=== PATIENT | female | born 1990 | race Caucasian/White ===

== ENCOUNTER 2022-11-30 11:34 | Emergency (ER) | payer OTHER, SELFPAY ==
--- NOTE | ~2022-11-30 | US_ITS ---
Examination: Ultrasound Pelvis and transvaginal. Chest x-ray with left RIBS. COMPARISON: CT abdomen and pelvis 05/29/2017. clinical indications: Pain and vaginal bleeding. TECHNIQUE: Chest and RIBS 4 views. Transabdominal and transvaginal imaging of pelvis was performed. FINDINGS: Chest: The lungs are well-expanded and clear of acute pneumonic process. The heart size and pulmonary vascularity is normal. Multiple views of left ribs with a marker in the lower chest reveals mild irregularity involving the left lateral 10th rib on one of the oblique views, suspicious for fracture. Rest the left ribs are unremarkable. Pelvis: The uterus is anteverted and anteflexed measuring 8.6 cm in length, 5.2 cm in AP and 6.6 cm in transverse dimension. The endometrial thickness is 1.3 cm. No focal lesion is seen. Small simple and complex nabothian cysts seen in the cervix The right ovary measures 3.0 x 1.7 x 2.5 cm and volume 6.6 mL. There are small follicular cysts seen. The right ovary measured 2.9 x 2.6 x 2.3). Left ovary measures 3.5 x 2.0 x 2.2 cm and volume 8.1 mL. There is no focal lesion seen. Previously left ovary measured 2.3 x 1.2 x 2.3 cm. There is moderate free fluid in bilateral adnexa. US/US pelvic and transvaginal IMPRESSION: 1. Unremarkable chest x-ray. Slight abnormality involving the left 10th rib. Question nondisplaced fracture.. 2. Unremarkable ovaries and uterus. 3. Small nabothian cysts in the cervix. 4. Moderate free fluid in bilateral adnexa.
[2022-11-30 11:48] VITALS: BP 111/53; PULSE 69; RESP 18; TEMP 37.1; O2SAT 98; BMI 25.4
--- NOTE | 2022-11-30 11:51 | ED.GENADULT ---
HPI - General Adult General Chief complaint: Vaginal Bleeding Stated complaint: weakness Time Seen by Provider: 11/30/22 12:05 Source: patient and RN notes reviewed Mode of arrival: ambulatory Limitations: no limitations History of Present Illness HPI narrative: This is a 32-year-old female, with no known past medical history,, presenting to the emergency department with complaints of vaginal bleeding. Patient states last menstrual period was on November 13 and has not had cessation of her menses. She admits passing large clots, saturating a pad in an hour, also endorsing weakness and dizziness. She states that she is not on control. She states that her menses are usually 5 days. She has never had prolonged menses like this before. She also states that she has had left sided rib pain, states that she fell out of bed several weeks ago. Denies chest pain, SOB, headaches, palpitations, nausea, vomiting, diarrhea or constipation. Denies dysuria, hematuria, urinary frequency or urgency. No other complaints or concerns at this time. MD complaint: Vaginal bleeding Radiation: non-radiation Relieving factors: none Exacerbating factors: none Associated symptoms: denies other symptoms Treatments prior to arrival: none Related Data Previous Rx's Medication Instructions Recorded ferrous sulfate 325 mg (65 mg 325 mg PO DAILY #30 tabs 11/30/22 iron) tablet medroxyprogesterone 10 mg tablet 10 mg PO DAILY #30 tabs 11/30/22 (Provera) Allergies Allergy/AdvReac Type Severity Reaction Status Date / Time No Known Allergies Allergy Unverified 12/29/19 17:41 Review of Systems Review of Systems: Yes all other systems are reviewed and are negative Constitutional: Constitutional: Reports as per [facility] Social History Social History Alcohol intake: never Physical Exam ED Vital Signs: Vital Signs - 24 hr 11/30/22 11:48 11/30/22 12:09 11/30/22 15:42 Temperature 98.8 F 97.9 F Pulse Rate 69 64 53 Respiratory Rate 18 16 16 Blood Pressure 111/53 L 100/60 108/59 L Pulse Oximetry 98 99 100 Oxygen Delivery Method Room Air Room Air Room Air BMI result Body Mass Index 23.9 Const General: cooperative, comfortable and no acute distress Orientation/consciousness: patient oriented x3 Limitations: no limitations HENMT Head: Yes normal to inspection, Yes normocephalic and Yes atraumatic Ears: hearing grossly normal bilaterally General nose exam: Normal external nose present Face and sinus: Yes normal facial exam Mouth: Normal oral and palatal mucosa present, oropharynx normal and moist mucous membranes Throat: Yes posterior oropharynx normal Eyes General: appearance normal, both eyes and all related structures Eyelids: Yes eyelids normal Conjunctivae: conjunctivae normal Sclerae: sclerae normal Pupils: Equal, round and reactive pupils present EOM: EOMs intact bilaterally Neck Neck: Yes normal visual inspection, Yes full ROM and Yes no lymphadenopathy Lymphatic: no lymphadenopathy noted Chest Other: Left sided chest wall tenderness to palpation. No step off or crepitus. Chest palpation & inspection: normal inspection of the chest Resp Effort & Inspection: normal respiratory effort and able to speak in complete sentences Auscultation: clear to auscultation bilaterally, no crackles, no rales, no rhonchi and no wheezes Cardio Rate: regular rate Rhythm: regular rhythm Heart sounds: S1 normal heart sound present and S2 normal heart sound present GI Other: Abdomen soft, nontender, nondistended. Inspection: Yes normal to inspection Other: Entirety of examination performed with ore dressing engineer, solar field service technician Mercedes present at all times. Speculum examination with blood with blood clots in the vaginal vault. No cerivcal motion tenderness. No adenexal tenderness. General: Yes Bimanual renal exam normal bilaterally and Yes bladder normal to palpation Speculum Exam - Vagina: normal appearance of the vagina, normal palpation and vaginal bleeding Speculum Exam - Cervix: normal appearance of the cervix and Cervical os closed Bimanual exam- vagina & uterus: normal bimanual exam, normal palpation, uterine size normal and bladder normal to palpation OB/external & speculum: vaginal bleeding Skin General skin exam: no rashes or lesions noted Trauma: no lacerations or abrasions Wounds: no wounds Neuro General: patient oriented x3 and moves all extremities Cranial nerves: Yes Equal, round and reactive pupils present Extrem General: Yes normal to inspection Right upper extremity: normal to inspection Left upper extremity: normal to inspection Right lower extremity: normal to inspection Left lower extremity: normal to inspection Course Course Course Narrative: RME: patient presents to the ED for weakness and vaginal bleeding for the past 3 weeks and has had vaginal blood clots the past 4 days and using multiple pads. patient also states abdominal cramping. patient states home pregnacy test is negative. patient denies any known past medical history of fibroids and ovarain cysts. labs ordered. patient brought to bed 6 Reevaluation(s) Reevaluation #1: The ultrasound showed moderate free fluid in the bilateral adnexa, unremarkable ovaries and uterus. I consult Dr. Sanchez, who recommends starting Provera 10 mg by mouth for 30 days until she is seen by her OBGYN. Recommend following up as outpatient 24 hours. Advised to return with any worsening symptoms or heavy bleeding. Also recommending ferrous sulfate 325 mg by mouth as well. Discussed plan with patient will understands and agrees with plan. Xrays reveal subtle abnormality overlying the 10th rib - question non - displaced fractured. Discussed findings with patient. Patient stable for discharge. Time: 15:35 Medical Decision Making Medical Decision Making [facility] Narrative: 32 y/o F presenting to the emergency department with complaints of abnormal uterine bleeding. On arrival, VSS. Patient has no TTP throughout entire abdomen. Speculum examination reveals a closed cervical OS, but bright red blood in vaginal vault. Labs were obtained, patient has stable H&H, all other labs WNL. Ultrasound was performed without any abnormalities. Differential Diagnosis Differential Diagnoses: The differential diagnosis associated with the presentation includes Abnormal uterine bleeding, ectopic , uterine fibroid, anemia Admission/Observation Consideration of admission/observation: Escalation of care including admission/observation considered Patient would have been admitted to the hospital had her work up had any findings where hospital admission was appropriate and her clinical presentation warranted hospital admission. Lab Data [facility] Lab Attestation statement: I reviewed the patient's lab results. 11/30/22 12:14 11/30/22 12:14 Labs: Lab Results 11/30/22 11/30/22 11/30/22 Range/Units 12:14 12:14 12:14 WBC 6.6 (4.8-10.8) X10*3/uL RBC 3.69 L (4.20-5.50) X10*6/uL Hgb 11.2 L (12.0-16.0) g/dl Hct 33.4 L (37.0-47.0) % MCV 90.5 (80.0-98.0) fL MCH 30.4 (27.0-33.0) pg MCHC 33.5 (31.0-35.0) g/dl RDW 13.4 (11.0-16.0) % Plt Count 171 (160-400) X10*3/uL MPV 9.7 (9.4-12.3) fL Immature Gran % (Auto) 0.5 H (0.0-0.4) % Neut % (Auto) 60.7 (45-73) % Lymph % (Auto) 29.7 (20-40) % Shackelford % (Auto) 6.5 (2-11) % Eos % (Auto) 1.8 (0-4) % Baso % (Auto) 0.8 (0-2) % Lymph # (Auto) 2.0 (1.2-4.9) X10*3/uL [place]ackelford # (Auto) 0.4 (0.1-1.2) X10*3/uL Eos # (Auto) 0.1 (0.0-0.4) X10*3/uL Baso # (Auto) 0.1 (0.0-0.2) X10*3/uL Abs Immat Gran (auto) 0.03 (0.00-0.03) X10*3/uL Absolute Neuts (auto) 4.0 (2.0-8.3) x10*3/uL Absolute Nucleated RBC 0.000 (0.0-0.012) X10*3/uL Nucleated RBC % (auto) 0.0 (0.0-0.2) /100WBC PT 12.1 (11.1-13.3) SEC INR 1.0 (0.9-1.1) APTT 27.3 (26.0-36.4) SEC Sodium 141 (135-145) mmol/L Potassium 3.6 (3.3-5.1) mmol/L Chloride 108 (96-108) mmol/L Carbon Dioxide 25 (22-29) mmol/L Anion Gap 12 (12-20) BUN 11 (9-16) mg/dL Creatinine 0.87 (0.5-1.4) mg/dL Estim Creat Clear Calc 78.6 Estimated GFR > 60 Random Glucose 150 H (60-115) mg/dL Calcium 9.1 (8.4-10.2) mg/dL Total Bilirubin 0.5 (0.0-1.0) mg/dL AST 18 (5-31) U/L ALT 16 (0-31) U/L Alkaline Phosphatase 50 (39-117) U/L Total Protein 7.0 (6.5-8.0) g/dL Albumin 4.1 (3.5-5.0) g/dL Beta HCG, Quant < 2 mIU/mL Urine Color Urine Appearance Urine pH (5.0-9.0) Ur Specific Malin (1.005-1.025) Urine Protein (Neg-Trace) mg/dL Urine Glucose (UA) (Negative) mg/dL Urine Ketones (Negative) mg/dL Urine Blood (Negative) Urine Nitrite (Negative) Ur Leukocyte Esterase (Negative) Urine RBC (0-2) /HPF Urine WBC (0-5) /HPF Ur Squamous Epith Cells (0-2) /HPF Urine Bacteria (None Seen) Hyaline Casts (0-2) /LPF Urine Test (NEGATIVE) Colette species DNA (Negative) Chlam trachomat DNA PCR (Not Detect.) Gardnerella DNA Probe (Negative) N.gonorrhoeae DNA (PCR) (Not Detect.) Trichomonas DNA Probe (Negative) 11/30/22 11/30/22 11/30/22 Range/Units 12:35 12:35 15:57 WBC (4.8-10.8) X10*3/uL RBC (4.20-5.50) X10*6/uL Hgb (12.0-16.0) g/dl Hct (37.0-47.0) % MCV (80.0-98.0) fL MCH (27.0-33.0) pg MCHC (31.0-35.0) g/dl RDW (11.0-16.0) % Plt Count (160-400) X10*3/uL MPV (9.4-12.3) fL Immature Gran % (Auto) (0.0-0.4) % Neut % (Auto) (45-73) % Lymph % (Auto) (20-40) % Shackelford % (Auto) (2-11) % Eos % (Auto) (0-4) % Baso % (Auto) (0-2) % Lymph # (Auto) (1.2-4.9) X10*3/uL [place] # (Auto) (0.1-1.2) X10*3/uL Eos # (Auto) (0.0-0.4) X10*3/uL Baso # (Auto) (0.0-0.2) X10*3/uL Abs Immat Gran (auto) (0.00-0.03) X10*3/uL Absolute Neuts (auto) (2.0-8.3) x10*3/uL Absolute Nucleated RBC (0.0-0.012) X10*3/uL Nucleated RBC % (auto) (0.0-0.2) /100WBC PT (11.1-13.3) SEC INR (0.9-1.1) APTT (26.0-36.4) SEC Sodium (135-145) mmol/L Potassium (3.3-5.1) mmol/L Chloride (96-108) mmol/L Carbon Dioxide (22-29) mmol/L Anion Gap (12-20) BUN (9-16) mg/dL Creatinine (0.5-1.4) mg/dL Estim Creat Clear Calc Estimated GFR Random Glucose (60-115) mg/dL Calcium (8.4-10.2) mg/dL Total Bilirubin (0.0-1.0) mg/dL AST (5-31) U/L ALT (0-31) U/L Alkaline Phosphatase (39-117) U/L Total Protein (6.5-8.0) g/dL Albumin (3.5-5.0) g/dL Beta HCG, Quant mIU/mL Urine Color Dark Yellow Urine Appearance Hazy Urine pH 6.0 (5.0-9.0) Ur Specific Malin 1.025 (1.005-1.025) Urine Protein 30 (1+) H (Neg-Trace) mg/dL Urine Glucose (UA) Negative (Negative) mg/dL Urine Ketones Trace (Negative) mg/dL Urine Blood Large (3+) H (Negative) Urine Nitrite Negative (Negative) Ur Leukocyte Esterase Moderate (2+) H (Negative) Urine RBC >20 H (0-2) /HPF Urine WBC >50 H (0-5) /HPF Ur Squamous Epith Cells 11-20 (0-2) /HPF Urine Bacteria 1+ (None Seen) Hyaline Casts 0-2 (0-2) /LPF Urine Test NEGATIVE (NEGATIVE) Colette species DNA (Negative) Chlam trachomat DNA PCR NOT DETECTED (Not Detect.) Gardnerella DNA Probe (Negative) N.gonorrhoeae DNA (PCR) NOT DETECTED (Not Detect.) Trichomonas DNA Probe (Negative) 11/30/22 Range/Units 15:57 WBC (4.8-10.8) X10*3/uL RBC (4.20-5.50) X10*6/uL Hgb (12.0-16.0) g/dl Hct (37.0-47.0) % MCV (80.0-98.0) fL MCH (27.0-33.0) pg MCHC (31.0-35.0) g/dl RDW (11.0-16.0) % Plt Count (160-400) X10*3/uL MPV (9.4-12.3) fL Immature Gran % (Auto) (0.0-0.4) % Neut % (Auto) (45-73) % Lymph % (Auto) (20-40) % Shackelford % (Auto) (2-11) % Eos % (Auto) (0-4) % Baso % (Auto) (0-2) % Lymph # (Auto) (1.2-4.9) X10*3/uL [place] # (Auto) (0.1-1.2) X10*3/uL Eos # (Auto) (0.0-0.4) X10*3/uL Baso # (Auto) (0.0-0.2) X10*3/uL Abs Immat Gran (auto) (0.00-0.03) X10*3/uL Absolute Neuts (auto) (2.0-8.3) x10*3/uL Absolute Nucleated RBC (0.0-0.012) X10*3/uL Nucleated RBC % (auto) (0.0-0.2) /100WBC PT (11.1-13.3) SEC INR (0.9-1.1) APTT (26.0-36.4) SEC Sodium (135-145) mmol/L Potassium (3.3-5.1) mmol/L Chloride (96-108) mmol/L Carbon Dioxide (22-29) mmol/L Anion Gap (12-20) BUN (9-16) mg/dL Creatinine (0.5-1.4) mg/dL Estim Creat Clear Calc Estimated GFR Random Glucose (60-115) mg/dL Calcium (8.4-10.2) mg/dL Total Bilirubin (0.0-1.0) mg/dL AST (5-31) U/L ALT (0-31) U/L Alkaline Phosphatase (39-117) U/L Total Protein (6.5-8.0) g/dL Albumin (3.5-5.0) g/dL Beta HCG, Quant mIU/mL Urine Color Urine Appearance Urine pH (5.0-9.0) Ur Specific Malin (1.005-1.025) Urine Protein (Neg-Trace) mg/dL Urine Glucose (UA) (Negative) mg/dL Urine Ketones (Negative) mg/dL Urine Blood (Negative) Urine Nitrite (Negative) Ur Leukocyte Esterase (Negative) Urine RBC (0-2) /HPF Urine WBC (0-5) /HPF Ur Squamous Epith Cells (0-2) /HPF Urine Bacteria (None Seen) Hyaline Casts (0-2) /LPF Urine Test (NEGATIVE) Colette species DNA Negative (Negative) Chlam trachomat DNA PCR (Not Detect.) Gardnerella DNA Probe Positive A (Negative) N.gonorrhoeae DNA (PCR) (Not Detect.) Trichomonas DNA Probe Negative (Negative) Radiology Impression Discussion of test interpretation with radiology: I have reviewed the radiologist's reading. External Record Review External record reviewed: Inpatient record, Office record, Outpatient record, Prior outpatient labs, Prior outpatient radiology, Primary care record and Outside ED record Discharge Plan Discharge Clinical Impression: Vaginal bleeding, Fracture of rib Patient Disposition: Home, Self-Care Instructions: Dysfunctional Uterine Bleeding (ED), Rib Fracture (ED) Additional Instructions: Please take prescribed medication as directed. Please follow-up outpatient in 24 hours. Call your OBGYN to be seen. I am also leaving [facility], you can call them to make an appointment as well. But it is very important that you follow-up within next 24 hours. Please return if heavy bleeding continues or you develop any worsening symptoms. Please take iron supplements every day. You do have a rib fracture, please ensure that your taking deep breath to prevent pneumonia. Prescriptions: New medroxyprogesterone [Provera] 10 mg tablet 10 mg PO DAILY Qty: 30 0RF ferrous sulfate 325 mg (65 mg iron) tablet 325 mg PO DAILY Qty: 30 0RF Referrals: [facility] [place] [facility] [Provider Group] Interventions: ED Discharge Assessment Last Done: 11/30/22 15:46 Discharge Date/Time: 11/30/22 15:47
[2022-11-30 12:09] VITALS: BP 100/60; PULSE 64; RESP 16; TEMP 36.6; O2SAT 99; BMI 23.9
[2022-11-30 12:21] LABS: MANUAL DIFF FLAG NO
[2022-11-30 12:23] LABS: Basophils Absolute Auto 0.1 X10*3/uL (0.0-0.2); Basophils Percent Auto 0.8 % (0-2); Eosinophils Absolute Auto 0.1 X10*3/uL (0.0-0.4); Eosinophils Percent Auto 1.8 % (0-4); Hematocrit 33.4 % (37.0-47.0); Hemoglobin 11.2 g/dl (12.0-16.0); Imm Gran Abs Auto 0.03 X10*3/uL (0.00-0.03); Imm Gran Pct Auto 0.5 % (0.0-0.4); Lymphocytes Percent Auto 29.7 % (20-40); Mean Corpuscular HGB Conc 33.5 g/dl (31.0-35.0); Mean Corpuscular Hemoglobin 30.4 pg (27.0-33.0); Mean Corpuscular Volume 90.5 fL (80.0-98.0); Mean Platelet Volume 9.7 fL (9.4-12.3); Monocytes Absolute Auto 0.4 X10*3/uL (0.1-1.2); Monocytes Percent Auto 6.5 % (2-11); Neutrophils Percent Auto 60.7 % (45-73); Platelet Count 171 X10*3/uL (160-400); Red Blood Count 3.69 X10*6/uL (4.20-5.50); Red Cell Distribution Width 13.4 % (11.0-16.0); White Blood Count 6.6 X10*3/uL (4.8-10.8)
[2022-11-30 12:33] LABS: Prothrombin Time 12.1 SEC (11.1-13.3)
[2022-11-30 12:36] LABS: Partial Thromboplastin Time 27.3 SEC (26.0-36.4)
[2022-11-30 12:42] LABS: Alanine Aminotransferase 16 U/L (0-31); Albumin Level 4.1 g/dL (3.5-5.0); Alkaline Phosphatase 50 U/L (39-117); Anion Gap 12 (12-20); Aspartate Amino Transferase 18 U/L (5-31); Bilirubin Total 0.5 mg/dL (0.0-1.0); Blood Urea Nitrogen 11 mg/dL (9-16); Calcium 9.1 mg/dL (8.4-10.2); Carbon Dioxide 25 mmol/L (22-29); Chloride 108 mmol/L (96-108); Creatinine Clr Calc Pharmacy 78.6; Estimated Glomerular Filt Rate > 60; Glucose Random 150 mg/dL (60-115); Potassium 3.6 mmol/L (3.3-5.1); Sodium 141 mmol/L (135-145)
[2022-11-30 12:43] LABS: HCG Quantitative < 2 mIU/mL
[2022-11-30 12:52] LABS: Appearance Urine Hazy; Color Urine Dark Yellow; Glucose Urine UA Negative (Negative); Specific Gravity - Urine 1.025 (1.005-1.025); Urine Blood Large (3+) (Negative); Urine Ketones Trace mg/dL (Negative); Urine Protein 30 (1+) mg/dL (Neg-Trace)
[2022-11-30 12:53] LABS: Leukocyte Esterase Urine Moderate (2+) (Negative); Nitrite Urine Negative (Negative); UMIC TRIGGER UACC YES; UPreg QC Valid YES; Urine Pregnancy NEGATIVE (NEGATIVE)
[2022-11-30 12:54] LABS: Bacteria Urine 1+ (None Seen); Hyaline Casts Urine 0-2 /LPF (0-2); RBC Urine >20 /HPF (0-2); UACC Culture Trigger YES; WBC Urine >50 /HPF (0-5)
--- NOTE | 2022-11-30 15:24 | PM.GYNCN ---
PARKING SUPERVISOR - CN: HPI Data of Consult Consult date: 11/30/22 Primary Care Provider: Vikash Montes III, MD Consult Narrative Narrative: I was consulted on Katharine Almendarez who is a 32 year old female presented to the emergency room with vaginal bleeding associated with passage of blood clots and pelvic cramping since November 13. No other associated symptoms. cc:: CC: OB [facility] Social History Social History Alcohol intake: never Smoked in Last 30 Days: Yes Use of substances other than those prescribed or required for medical reasons: No Advance Directives: No Advance Directives Information Provided: No Patient : No Meds Allergies Allergy/AdvReac Type Severity Reaction Status Date / Time No Known Allergies Allergy Unverified 12/29/19 17:41 PARKING SUPERVISOR Physical Exam Vitals Vital signs: Temp Pulse Resp BP Pulse Ox O2 Del Method 97.9 F 64 16 100/60 99 Room Air 11/30/22 12:09 11/30/22 12:09 11/30/22 12:09 11/30/22 12:09 11/30/22 12:09 11/30/22 12:09 BMI result Body Mass Index 23.9 Additional Comments: Reported by TITA Durán the emergency room as the following: Abdomen nontender soft. Pelvic exam blood per vagina, no evidence of active vaginal bleeding, no cervical motion tenderness. PARKING SUPERVISOR - Results Labs 11/30/22 12:14 11/30/22 12:14 Labs: Short CBC 11/30/22 Range/Units 12:14 WBC 6.6 (4.8-10.8) X10*3/uL Hgb 11.2 L (12.0-16.0) g/dl Hct 33.4 L (37.0-47.0) % Plt Count 171 (160-400) X10*3/uL BMP 11/30/22 12:14 Sodium 141 Potassium 3.6 Chloride 108 Carbon Dioxide 25 BUN 11 Creatinine 0.87 Calcium 9.1 Liver Function 11/30/22 Range/Units 12:14 Total Bilirubin 0.5 (0.0-1.0) mg/dL AST 18 (5-31) U/L ALT 16 (0-31) U/L Alkaline Phosphatase 50 (39-117) U/L Albumin 4.1 (3.5-5.0) g/dL Urine 11/30/22 11/30/22 Range/Units 12:35 12:35 Urine Color Dark Yellow Urine Appearance Hazy Urine pH 6.0 (5.0-9.0) Ur Specific [place] 1.025 (1.005-1.025) Urine Protein 30 (1+) H (Neg-Trace) mg/dL Urine Glucose (UA) Negative (Negative) mg/dL Urine Test NEGATIVE (NEGATIVE) Imaging US - abdomen: Radiologist's impression: ITS Impressions Pelvic/Transvag US 11/30/22 14:00 IMPRESSION: 1. Unremarkable chest x-ray. Slight abnormality involving the left 10th rib. Question nondisplaced fracture.. 2. Unremarkable ovaries and uterus. 3. Small nabothian cysts in the cervix. 4. Moderate free fluid in bilateral adnexa. Ribs X-Ray 11/30/22 14:19 IMPRESSION: 1. Unremarkable chest x-ray. Slight abnormality involving the left 10th rib. Question nondisplaced fracture.. 2. Unremarkable ovaries and uterus. 3. Small nabothian cysts in the cervix. 4. Moderate free fluid in bilateral adnexa. Assessment and Plan (1) Abnormal uterine bleeding: Status: Acute Recommended to TITA Durán the following: Provera 10 mg p.o. q.d. till she sees her OBGYN at [place]. Follow-up with her OBGYN within 24 hours for further evaluation or or or. Instructions to be given to the patient to come back to the emergency room in case of persistence or heavy vaginal bleeding, pelvic pain or fever, iron sulfate 325 mg p.o. q.d. Time Spent With Patient Time: Total time managing care of this patient today ____ minutes.
[2022-11-30 15:42] VITALS: BP 108/59; PULSE 53; RESP 16; O2SAT 100
[2022-12-01 05:40] LABS: CT PCR NOT DETECTED (Not Detect.); NG PCR NOT DETECTED (Not Detect.)
[2022-12-01 09:15] LABS: BV Int Neg Control Negative (Negative); BV Int Pos Control Positive (Positive)
== END 2022-11-30 15:47 | disposition home or self-care (01) ==
PROVIDERS: Physician Assistant; Physician Assistant Medical; Emergency Provider Emergency Medicine; PCP Internal Medicine
DX: S22.32XA Fracture of one rib, left side, initial encounter for closed fracture (principal); N93.9 Abnormal uterine and vaginal bleeding, unspecified; R53.1 Weakness; R07.81 Pleurodynia; R10.2 Pelvic and perineal pain; X58.XXXA Exposure to other specified factors, initial encounter; Y93.9 Activity, unspecified; Y92.9 Unspecified place or not applicable; Y99.9 Unspecified external cause status; Z79.899 Other long term (current) drug therapy
CPT/HCPCS: 0353U; 36415; 71101; 76830; 76856; 80053; 81001; 81025; 84702; 85025; 85610; 85730; 87086; 87480; 87510; 87660; 99284

== ENCOUNTER → 2022-11-30 12:08 | Outpatient (BNV) | payer OTHER, SELFPAY | PROVIDERS: Emergency Provider Emergency Medicine; PCP Internal Medicine; Visit Provider Obstetrics & Gynecology | DX: N93.9 Abnormal uterine and vaginal bleeding, unspecified (principal) | CPT/HCPCS: 99283 ==

== ENCOUNTER 2023-01-30 13:16 | Emergency (ER) | payer OTHER, SELFPAY ==
[2023-01-30 13:27] VITALS: BP 138/82; PULSE 88; O2SAT 99; BMI 24.8
[2023-01-30 13:44] VITALS: BP 117/68; PULSE 72; RESP 16; TEMP 36.9; O2SAT 100
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
[2023-01-30] MEDS: Ketorolac Tromethamine 15 MG/ML VIAL IM (15:49)
== END 2023-01-30 16:12 | disposition left against medical advice (07) ==
PROVIDERS: Emergency Provider Emergency Medicine
DX: S13.4XXA Sprain of ligaments of cervical spine, initial encounter (principal); S49.92XA Unspecified injury of left shoulder and upper arm, initial encounter; R51.9 Headache, unspecified; M54.2 Cervicalgia; V43.52XA Car driver injured in collision with other type car in traffic accident, initial encounter; Y93.9 Activity, unspecified; Y92.410 Unspecified street and highway as the place of occurrence of the external cause; Y99.9 Unspecified external cause status; Z79.899 Other long term (current) drug therapy
CPT/HCPCS: 96372; 99283; 99284; J1885

== ENCOUNTER 2023-02-25 13:33 | Emergency (ER) | payer OTHER, SELFPAY ==
[2023-02-25 13:50] VITALS: BP 107/58; PULSE 69; RESP 16; TEMP 37.1; O2SAT 99; BMI 25.5
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
[2023-02-25 14:11] LABS: MANUAL DIFF FLAG NO
[2023-02-25 14:21] LABS: Basophils Absolute Auto 0.1 X10*3/uL (0.0-0.2); Basophils Percent Auto 0.9 % (0-2); Eosinophils Absolute Auto 0.2 X10*3/uL (0.0-0.4); Eosinophils Percent Auto 2.7 % (0-4); Hematocrit 33.1 % (37.0-47.0); Hemoglobin 10.4 g/dl (12.0-16.0); Imm Gran Abs Auto 0.02 X10*3/uL (0.00-0.03); Imm Gran Pct Auto 0.3 % (0.0-0.4); Mean Corpuscular HGB Conc 31.4 g/dl (31.0-35.0); Mean Corpuscular Hemoglobin 27.7 pg (27.0-33.0); Mean Corpuscular Volume 88.3 fL (80.0-98.0); Monocytes Absolute Auto 0.5 X10*3/uL (0.1-1.2); Monocytes Percent Auto 6.8 % (2-11); Neutrophils Absolute Auto 3.9 x10*3/uL (2.0-8.3); Neutrophils Percent Auto 59.3 % (45-73); Platelet Count 210 X10*3/uL (160-400); Red Blood Count 3.75 X10*6/uL (4.20-5.50); Red Cell Distribution Width 14.1 % (11.0-16.0); White Blood Count 6.6 X10*3/uL (4.8-10.8)
[2023-02-25 14:22] LABS: Prothrombin Time 11.9 SEC (11.1-13.3)
[2023-02-25 14:31] LABS: Alanine Aminotransferase 12 U/L (0-31); Albumin Level 3.8 g/dL (3.5-5.0); Alkaline Phosphatase 64 U/L (39-117); Anion Gap 6 (12-20); Aspartate Amino Transferase 17 U/L (5-31); Bilirubin Direct < 0.2 mg/dL (0.0-0.5); Bilirubin Total 0.1 mg/dL (0.0-1.0); Blood Urea Nitrogen 13 mg/dL (9-16); Calcium 8.5 mg/dL (8.4-10.2); Carbon Dioxide 29 mmol/L (22-29); Chloride 114 mmol/L (96-108); Estimated Glomerular Filt Rate > 60; Glucose Random 102 mg/dL (60-115); Lipase 23 U/L (8-78); Sodium 145 mmol/L (135-145); Total Protein 6.7 g/dL (6.5-8.0)
== END 2023-02-25 15:16 | disposition left against medical advice (07) ==
PROVIDERS: Physician Assistant; Emergency Provider Emergency Medicine
DX: S06.9XAA Unspecified intracranial injury with loss of consciousness status unknown, initial encounter (principal); R51.9 Headache, unspecified; R10.32 Left lower quadrant pain; V43.52XA Car driver injured in collision with other type car in traffic accident, initial encounter; Y93.9 Activity, unspecified; Y92.410 Unspecified street and highway as the place of occurrence of the external cause; Y99.9 Unspecified external cause status; Z79.899 Other long term (current) drug therapy
CPT/HCPCS: 36415; 80048; 80076; 83690; 85025; 85610; 99282; 99283

== ENCOUNTER 2023-03-04 09:37 | Emergency (ER) | payer OTHER, SELFPAY ==
[2023-03-04 09:46] VITALS: BP 132/83; PULSE 86; RESP 18; TEMP 36.6; O2SAT 99; BMI 25.5
== END 2023-03-04 12:28 | disposition left against medical advice (07) ==
PROVIDERS: Emergency Provider Emergency Medicine
DX: R42 Dizziness and giddiness (principal)
CPT/HCPCS: 99281

== ENCOUNTER 2023-03-06 11:47 | Emergency (ER) | payer OTHER, SELFPAY ==
--- NOTE | ~2023-03-06 | XR_ITS ---
EXAMINATION: XR RIBS, LEFT CLINICAL INFORMATION: Fall with rib tenderness COMPARISON: 11/30/2022 TECHNIQUE: 3 views of the left ribs were obtained. AP chest. FINDINGS: Lungs are clear. No consolidation, pneumothorax, or pleural effusion. The cardiomediastinal silhouette and pulmonary vasculature are normal. Healing lateral left 7th rib fracture with callus formation. This is not apparent on previous radiographs. No acute fracture is evident. XR/XR ribs LT min 3V w CXR1V IMPRESSION: Healing nondisplaced lateral left 7th rib fracture with callus formation. No acute fracture is evident.
--- NOTE | ~2023-03-06 | XR_ITS ---
EXAMINATION: XR HAND, LEFT CLINICAL INFORMATION: Pain and swelling COMPARISON: None available. TECHNIQUE: PA, lateral, and oblique views of the left hand. FINDINGS: The bones and soft tissues are normal. No fracture. Alignment is anatomic. Joint spaces are maintained. No erosions or soft tissue calcifications. XR/XR hand LT min 3V IMPRESSION: Normal left hand.
--- NOTE | 2023-03-06 12:10 | ED.GENADULT ---
HPI - General Adult General Chief complaint: General Medical Stated complaint: dizziness Related Data Previous Rx's Medication Instructions Recorded ferrous sulfate 325 mg (65 mg 325 mg PO DAILY #30 tabs 11/30/22 iron) tablet medroxyprogesterone 10 mg tablet 10 mg PO DAILY #30 tabs 11/30/22 (Provera) ketorolac 10 mg tablet 10 mg PO TID PRN pain 5 days #15 01/30/23 tabs Allergies Allergy/AdvReac Type Severity Reaction Status Date / Time No Known Allergies Allergy Verified 03/04/23 09:46 [facility] Social History Alcohol intake: never Physical Exam ED Vital Signs: Vital Signs - 24 hr 03/06/23 12:11 Temperature 98 F Pulse Rate 80 Respiratory Rate 18 Blood Pressure 127/64 Pulse Oximetry 98 Oxygen Delivery Method Room Air BMI result Body Mass Index 26.5 Course Course Course Narrative: This is a rapid medical exam: Additional HPI, ROS, PE not included below will be deferred to primary provider. Patient is a 32-year-old right-hand dominant female presenting to the emergency department with complaint of dizziness this morning which caused her to fall. She complains of left rib and left index finger pain related to fall. Denies hitting head, denies loss of consciousness. Denies prior dizzy episodes before today. Also states she has bumps all over her head as well as genital pain, swelling, and itching. Also reports white vaginal discharge. Plan: x-rays, UA, upreg Discharge Plan Discharge Clinical Impression: Dizziness Patient Disposition: Left W/O Completing Treatment Prescriptions: No Action ketorolac 10 mg tablet 10 mg PO TID PRN (Reason: pain) 5 Days Qty: 15 0RF medroxyprogesterone [Provera] 10 mg tablet 10 mg PO DAILY Qty: 30 0RF ferrous sulfate 325 mg (65 mg iron) tablet 325 mg PO DAILY Qty: 30 0RF
[2023-03-06 12:11] VITALS: BP 127/64; PULSE 80; RESP 18; TEMP 36.6; O2SAT 98; BMI 26.5
== END 2023-03-06 14:20 | disposition left against medical advice (07) ==
PROVIDERS: Emergency Provider Emergency Medicine
DX: S69.92XA Unspecified injury of left wrist, hand and finger(s), initial encounter (principal); R42 Dizziness and giddiness; R07.81 Pleurodynia; M79.642 Pain in left hand; W01.0XXA Fall on same level from slipping, tripping and stumbling without subsequent striking against object, initial encounter; Y93.9 Activity, unspecified; Y92.9 Unspecified place or not applicable; Y99.9 Unspecified external cause status
CPT/HCPCS: 71101; 73130; 99281; 99283

== ENCOUNTER 2023-05-25 08:56 | Emergency (ER) | payer OTHER, SELFPAY ==
[2023-05-25 09:08] VITALS: BP 131/101; PULSE 78; RESP 18; TEMP 36.4; O2SAT 99; BMI 26.7
--- NOTE | 2023-05-25 10:38 | ED.FEMALEGU ---
HPI - Female Genitourinary General Chief complaint: Urogenital-Female Stated complaint: cramping? Time Seen by Provider: 05/25/23 10:07 Source: patient and RN notes reviewed Mode of arrival: ambulatory Limitations: no limitations History of Present Illness HPI Narrative: This is a 32-year-old female, with history of abnormal uterine bleeding, presenting to the emergency department for evaluation abnormal vaginal discharge and vaginal bumps for the last month. She also reports itching as well bumps in her genitalia. She is sexually active with 1 partner. No new partners. She denies any fevers, chills, body aches, abdominal pain, nausea, vomiting or diarrhea. States that her last menstrual cycle was about 1 month ago. She denies any burning with urination, urinary frequency, urgency, dysuria or hematuria. Denies history genital warts for known history of STIs. No other complaints or concerns at this time. MD elicited complaint: vaginal discharge Onset (ago): month(s) Location of symptoms: external genitalia Severity: moderate Quality of pain: cramping Vaginal discharge: white and thick/cheesy Vaginal bleeding: none Related Data Previous Rx's Medication Instructions Recorded ferrous sulfate 325 mg (65 mg 325 mg PO DAILY #30 tabs 11/30/22 iron) tablet medroxyprogesterone 10 mg tablet 10 mg PO DAILY #30 tabs 11/30/22 (Provera) ketorolac 10 mg tablet 10 mg PO TID PRN pain 5 days #15 01/30/23 tabs doxycycline hyclate 100 mg tablet 100 mg PO BID 14 days #28 tabs 05/25/23 lidocaine HCl 2 % mucosal solution 1 appl mucous membrane TID PRN 05/25/23 (Lidocaine Viscous) pain #100 mL metronidazole 500 mg tablet 500 mg PO Q12H 14 days #28 tabs 05/25/23 Allergies Allergy/AdvReac Type Severity Reaction Status Date / Time No Known Allergies Allergy Verified 05/25/23 09:11 Review of Systems Review of Systems: Yes all other systems are reviewed and are negative Constitutional: Constitutional: Reports as per [facility] Social History Social History Alcohol intake: never Advance Directives: No Physical Exam Vital Signs: Vital Signs: Last Vital Signs Temp 97.6 F 05/25/23 09:08 Pulse 78 05/25/23 09:08 Resp 18 05/25/23 09:08 BP 131/101 H 05/25/23 09:08 Pulse Ox 99 05/25/23 09:08 O2 Del Method Room Air 05/25/23 09:08 BMI result Body Mass Index 26.7 Const: General: cooperative, comfortable and no acute distress Orientation/consciousness: patient oriented x3 Limitations: no limitations HEENT: Head: Yes normal to inspection, Yes normocephalic and Yes atraumatic Ears: hearing grossly normal bilaterally General nose exam: Normal external nose present Face and sinus: Yes normal facial exam Mouth: Normal oral and palatal mucosa present, oropharynx normal and moist mucous membranes Throat: Yes posterior oropharynx normal Eyes: General: appearance normal, both eyes and all related structures Eyelids: Yes eyelids normal Conjunctivae: conjunctivae normal Sclerae: sclerae normal Pupils: Equal, round and reactive pupils present EOM: EOMs intact bilaterally Neck: Neck: Yes normal visual inspection, Yes full ROM and Yes no lymphadenopathy Lymphatic: no lymphadenopathy noted Chest: Chest palpation & inspection: normal inspection of the chest Resp: Effort & Inspection: normal respiratory effort and able to speak in complete sentences Auscultation: clear to auscultation bilaterally, no crackles, no rales, no rhonchi and no wheezes Cardio: Rate: regular rate Rhythm: regular rhythm Heart sounds: S1 normal heart sound present and S2 normal heart sound present GI: Other: Abdomen is soft, nontender, nondistended Inspection: Yes normal to inspection : Other: External genitalia with scattered, greater than 10 multiple size, greatest measuring approximately 2 cm, stuck on appearance flesh-colored, tender lesions noted to the labia majora. No fluctuance or erythema. Vaginal vault thick white curd like vaginal discharge, bimanual examination with cervical motion tenderness noted. Cervical os is closed. Skin: General skin exam: no rashes or lesions noted Trauma: no lacerations or abrasions Wounds: no wounds Neuro: General: patient oriented x3 and moves all extremities Cranial nerves: Yes Equal, round and reactive pupils present Extrem: General: Yes normal to inspection Right upper extremity: normal to inspection Left upper extremity: normal to inspection Right lower extremity: normal to inspection Left lower extremity: normal to inspection Course Reevaluation(s) Reevaluation #1: Multiple attempts were made to call patient in regards to positive syphilis screening. I wanted to touch base with patient to see if she has a history of syphilis however given that she was unable to answer the phone, I left a message to return call to discuss laboratories. This still needs to be sent out for confirmation testing. Time: 19:06 Medications Administered Discontinued Medications Generic Name Dose Route Start Last Admin Trade Name Andrew PRN Reason Stop Dose Admin Ceftriaxone Sodium 500 mg/ 0 mg 05/25/23 11:14 05/25/23 11:26 Lidocaine HCl 1 ml IM 05/25/23 11:15 500 kit ONCE ONE Administration Medical Decision Making Medical Decision Making [facility] Narrative: This is a 32-year-old female presenting to the emergency department for evaluation of abnormal vaginal discharge for the last month. Also reporting some swelling and itchiness to the genitalia region. On arrival, patient nontoxic appearing, vital signs within normal limits. Examination concerning for genital warts as well as pelvic inflammatory disease as patient has white thick discharge with cervical motion tenderness. Will test for HIV and syphilis. Basic labs were collected. Patient treated with doxycycline, ceftriaxone and Flagyl. I discussed that we will call her with any positive results from her testing performed today. She understands and agrees with plan. I also educated the importance of following with OBGYN has genital warts often times needs to have surgical intervention or topical treatment which is often times prescribed by an OBGYN. She understands and agrees with plan. Given return precautions. Patient stable for discharge Differential Diagnosis Differential Diagnoses: The differential diagnosis associated with the presentation includes Bacterial vaginosis, vulva candidiasis, STI Admission/Observation Consideration of admission/observation: Escalation of care including admission/observation considered Lab Data [facility] Lab Attestation statement: I reviewed the patient's lab results. No leukocytosis, stable H&H, chemistry within normal limits. Patient with leuk esterases and wbc's, does not appear to be infected, will wait for urine culture. Chlamydia and gonorrhea returns, not detected, HIV nonreactive. She did test positive for RPR screening, see course comment as I tried to call patient in regards to this test however not answering phone and she already left prior to this result. Gardnerella, candidiasis and Trichomonas still pending. 05/25/23 11:27 05/25/23 11:27 Labs: Lab Results 05/25/23 05/25/23 05/25/23 Range/Units 10:49 11:19 11:27 WBC 8.8 (4.8-10.8) X10*3/uL RBC 4.48 (4.20-5.50) X10*6/uL Hgb 12.7 D (12.0-16.0) g/dl Hct 38.5 (37.0-47.0) % MCV 85.9 (80.0-98.0) fL MCH 28.3 (27.0-33.0) pg MCHC 33.0 (31.0-35.0) g/dl RDW 13.8 (11.0-16.0) % Plt Count 233 (160-400) X10*3/uL MPV 10.4 (9.4-12.3) fL Immature Gran % (Auto) 0.7 H (0.0-0.4) % Neut % (Auto) 61.6 (45-73) % Lymph % (Auto) 28.1 (20-40) % [place]linger % (Auto) 6.4 (2-11) % Eos % (Auto) 2.6 (0-4) % Baso % (Auto) 0.6 (0-2) % Lymph # (Auto) 2.5 (1.2-4.9) X10*3/uL Bollinger # (Auto) 0.6 (0.1-1.2) X10*3/uL Eos # (Auto) 0.2 (0.0-0.4) X10*3/uL Baso # (Auto) 0.1 (0.0-0.2) X10*3/uL Abs Immat Gran (auto) 0.06 H (0.00-0.03) X10*3/uL Absolute Neuts (auto) 5.4 (2.0-8.3) x10*3/uL Absolute Nucleated RBC 0.000 (0.0-0.012) X10*3/uL Nucleated RBC % (auto) 0.0 (0.0-0.2) /100WBC Sodium 139 (135-145) mmol/L Potassium 4.1 (3.3-5.1) mmol/L Chloride 103 (96-108) mmol/L Carbon Dioxide 27 (22-29) mmol/L Anion Gap 13 (12-20) BUN 16 (9-16) mg/dL Creatinine 0.80 (0.5-1.4) mg/dL Estim Creat Clear Calc 95.5 Estimated GFR > 60 Random Glucose 86 (60-115) mg/dL Calcium 9.5 D (8.4-10.2) mg/dL Total Bilirubin 0.4 (0.0-1.0) mg/dL Direct Bilirubin 0.2 (0.0-0.5) mg/dL AST 18 (5-31) U/L ALT 14 (0-31) U/L Alkaline Phosphatase 68 (39-117) U/L Total Protein 8.3 H (6.5-8.0) g/dL Albumin 4.6 (3.5-5.0) g/dL Urine Color Yellow Urine Appearance Clear Urine pH 7.0 (5.0-9.0) Ur Specific [place] 1.025 (1.005-1.025) Urine Protein Negative (Neg-Trace) mg/dL Urine Glucose (UA) Negative (Negative) mg/dL Urine Ketones Negative (Negative) mg/dL Urine Blood Negative (Negative) Urine Nitrite Negative (Negative) Ur Leukocyte Esterase Moderate (2+) H (Negative) Urine RBC 0-2 (0-2) /HPF Urine WBC 21-50 H (0-5) /HPF Ur Squamous Epith Cells 0-2 (0-2) /HPF Urine Bacteria None Seen (None Seen) Hyaline Casts 0-2 (0-2) /LPF Urine Test NEGATIVE (NEGATIVE) T.pallidum Ab (EIA) Reactive A (Nonreactive) Chlam trachomat DNA PCR NOT DETECTED (Not Detect.) HIV 1&2 Ab/P24 Ag 4thGn Nonreactive (Nonreactive) N.gonorrhoeae DNA (PCR) NOT DETECTED (Not Detect.) Prescription Management I considered prescription management with: Antiviral and Antibiotic Discharge Plan Discharge Clinical Impression: Acute pelvic inflammatory disease (PID), Genital warts Patient Disposition: Home, Self-Care Instructions: Sexually Transmitted Diseases (ED), Genital Warts (ED) Additional Instructions: Your physical exam today was concerning for genital warts. We are also testing for gonorrhea, chlamydia, bacterial vaginosis, Trichomonas, and yeast, HIV and syphilis. We will call you if these are positive. I also sent over to other antibiotics, please take full course even if you are feeling better. I am also prescribing you topical lidocaine that you can apply to help with pain. You may also take ibuprofen and Tylenol as needed for pain. You need to follow-up with OBGYN, call today to make an appointment. If any new or worsening symptoms occur including but not limited to fevers, chills, worsening pain, difficulty urinating, pelvic pressure or worsening pain, please return for re-evaluation. [facility] [phone] Prescriptions: New doxycycline hyclate 100 mg tablet 100 mg PO BID 14 Days Qty: 28 0RF metronidazole 500 mg tablet 500 mg PO Q12H 14 Days Qty: 28 0RF lidocaine HCl [Lidocaine Viscous] 2 % solution 1 appl mucous membrane TID PRN (Reason: pain) Qty: 100 0RF No Action ketorolac 10 mg tablet 10 mg PO TID PRN (Reason: pain) 5 Days Qty: 15 0RF medroxyprogesterone [Provera] 10 mg tablet 10 mg PO DAILY Qty: 30 0RF ferrous sulfate 325 mg (65 mg iron) tablet 325 mg PO DAILY Qty: 30 0RF Referrals: Lowell Sanchez MD [Physician] - Interventions: ED Discharge Assessment Last Done: 05/25/23 12:17 Discharge Date/Time: 05/25/23 12:17
[2023-05-25 10:57] LABS: Appearance Urine Clear; Color Urine Yellow; Glucose Urine UA Negative (Negative); Leukocyte Esterase Urine Moderate (2+) (Negative); Nitrite Urine Negative (Negative); Specific Gravity - Urine 1.025 (1.005-1.025); UMIC TRIGGER UACC YES; UPreg QC Valid YES; Urine Blood Negative (Negative); Urine Ketones Negative (Negative); Urine Pregnancy NEGATIVE (NEGATIVE); Urine Protein Negative (Neg-Trace)
[2023-05-25 11:10] LABS: Bacteria Urine None Seen (None Seen); Hyaline Casts Urine 0-2 /LPF (0-2); RBC Urine 0-2 /HPF (0-2); Squamous Epithelial Cell Urine 0-2 /HPF (0-2); UACC Culture Trigger YES; WBC Urine 21-50 /HPF (0-5)
[2023-05-25] MEDS: cefTRIAXone sodium 500 MG, Lidocaine HCl 1 % MPF 1 ML IM (11:26)
[2023-05-25 11:54] LABS: MANUAL DIFF FLAG NO
[2023-05-25 11:56] LABS: Basophils Absolute Auto 0.1 X10*3/uL (0.0-0.2); Basophils Percent Auto 0.6 % (0-2); Eosinophils Absolute Auto 0.2 X10*3/uL (0.0-0.4); Eosinophils Percent Auto 2.6 % (0-4); Hematocrit 38.5 % (37.0-47.0); Hemoglobin 12.7 g/dl (12.0-16.0); Imm Gran Abs Auto 0.06 X10*3/uL (0.00-0.03); Imm Gran Pct Auto 0.7 % (0.0-0.4); Lymphocytes Absolute Auto 2.5 X10*3/uL (1.2-4.9); Lymphocytes Percent Auto 28.1 % (20-40); Mean Corpuscular Hemoglobin 28.3 pg (27.0-33.0); Mean Corpuscular Volume 85.9 fL (80.0-98.0); Mean Platelet Volume 10.4 fL (9.4-12.3); Monocytes Absolute Auto 0.6 X10*3/uL (0.1-1.2); Monocytes Percent Auto 6.4 % (2-11); Neutrophils Absolute Auto 5.4 x10*3/uL (2.0-8.3); Neutrophils Percent Auto 61.6 % (45-73); Platelet Count 233 X10*3/uL (160-400); Red Blood Count 4.48 X10*6/uL (4.20-5.50); Red Cell Distribution Width 13.8 % (11.0-16.0); White Blood Count 8.8 X10*3/uL (4.8-10.8)
[2023-05-25 12:21] LABS: Alanine Aminotransferase 14 U/L (0-31); Albumin Level 4.6 g/dL (3.5-5.0); Alkaline Phosphatase 68 U/L (39-117); Anion Gap 13 (12-20); Aspartate Amino Transferase 18 U/L (5-31); Bilirubin Direct 0.2 mg/dL (0.0-0.5); Bilirubin Total 0.4 mg/dL (0.0-1.0); Blood Urea Nitrogen 16 mg/dL (9-16); Calcium 9.5 mg/dL (8.4-10.2); Carbon Dioxide 27 mmol/L (22-29); Chloride 103 mmol/L (96-108); Creatinine Clr Calc Pharmacy 95.5; Estimated Glomerular Filt Rate > 60; Glucose Random 86 mg/dL (60-115); Potassium 4.1 mmol/L (3.3-5.1); Sodium 139 mmol/L (135-145); Total Protein 8.3 g/dL (6.5-8.0)
[2023-05-25 12:36] LABS: HIV AB/AG Nonreactive (Nonreactive); HIV Num 1 0.05 S/CO (0.00-0.99)
[2023-05-25 12:44] LABS: Syphilis Screen Reactive (Nonreactive)
[2023-05-25 13:26] LABS: CT PCR NOT DETECTED (Not Detect.); NG PCR NOT DETECTED (Not Detect.)
[2023-05-26 10:54] LABS: BV Int Neg Control Negative (Negative); BV Int Pos Control Positive (Positive)
[2023-05-31 11:12] LABS: RPR Quantitative Reactive 1:32 (Nonreactive)
[2023-05-31 11:13] LABS: T.Pallidum Particle Agg Test Reactive (Nonreactive)
== END 2023-05-25 12:17 | disposition home or self-care (01) ==
PROVIDERS: Physician Assistant Medical; Emergency Provider Emergency Medicine
DX: A00-B99 Certain infectious and parasitic diseases (principal); A63.0 Anogenital (venereal) warts; N89.8 Other specified noninflammatory disorders of vagina; L29.2 Pruritus vulvae
CPT/HCPCS: 0353U; 36415; 80048; 80076; 81001; 81025; 85025; 86592; 86780; 87086; 87389; 87480; 87510; 87660; 96372; 99282; 99284; J0696

== ENCOUNTER 2023-06-03 13:09 | Emergency (ER) | payer OTHER, SELFPAY ==
[2023-06-03 13:14] VITALS: BP 106/57; PULSE 73; RESP 17; TEMP 37; O2SAT 100; BMI 26.4
--- NOTE | 2023-06-03 13:14 | ED.FEMALEGU ---
HPI - Female Genitourinary General Chief complaint: Urogenital-Female Stated complaint: called to return for pos test result Time Seen by Provider: 06/03/23 13:14 Source: patient, RN notes reviewed and old records reviewed Mode of arrival: ambulatory History of Present Illness HPI Narrative: 32-year-old female past medical history of abnormal uterine bleeding, syphilis positive, presenting to ED for syphilis treatment. Patient was seen and treated in our ED on 03/24/2024, tested for STIs at that time, called and informed she was syphilis positive & to return for proper treatment. Denies any symptoms at present. States is sexually active with 1 partner. Denies lesions, vaginal bleeding/discharge, abdominal pain, nausea/vomiting. Related Data Previous Rx's Medication Instructions Recorded ferrous sulfate 325 mg (65 mg 325 mg PO DAILY #30 tabs 11/30/22 iron) tablet medroxyprogesterone 10 mg tablet 10 mg PO DAILY #30 tabs 11/30/22 (Provera) ketorolac 10 mg tablet 10 mg PO TID PRN pain 5 days #15 01/30/23 tabs doxycycline hyclate 100 mg tablet 100 mg PO BID 14 days #28 tabs 05/25/23 lidocaine HCl 2 % mucosal solution 1 appl mucous membrane TID PRN 05/25/23 (Lidocaine Viscous) pain #100 mL metronidazole 500 mg tablet 500 mg PO Q12H 14 days #28 tabs 05/25/23 Allergies Allergy/AdvReac Type Severity Reaction Status Date / Time No Known Allergies Allergy Verified 05/25/23 09:11 Review of Systems Review of Systems: Constitutional: No Fever, No Chills ENT/Mouth: No Ear Pain, No Nasal Congestion, No sore throat, No Rhinorrhea, No Swallowing Difficulty Cardiovascular: No Chest Pain, No SOB Respiratory: No Cough Gastrointestinal: No Nausea, No Vomiting, No Abdominal pain Genitourinary: No vaginal discharge, no vaginal lesions, No Dysuria, No Urinary Frequency, No Hematuria, No Flank Pain Musculoskeletal: No joint pain, No Myalgias Skin: No Skin Lesions, No rash Neuro: No Weakness Yes all other systems are reviewed and are negative Constitutional: Constitutional: Reports as per [facility] Past Medical History Attestation statement: The following information was validated with the patient. Source: old records reviewed Social History Social History Alcohol intake: never Physical Exam Vital Signs: Vital Signs: Last Vital Signs Temp 98.6 F 06/03/23 13:14 Pulse 73 06/03/23 13:14 Resp 17 06/03/23 13:14 BP 106/57 L 06/03/23 13:14 Pulse Ox 100 06/03/23 13:14 O2 Del Method Room Air 06/03/23 13:14 BMI result Body Mass Index 26.4 Const: General: cooperative, healthy appearing and no acute distress Orientation/consciousness: patient oriented x3 Limitations: no limitations HEENT: Head: Yes normal to inspection and Yes atraumatic Ears: hearing grossly normal bilaterally General nose exam: Normal external nose present Face and sinus: Yes normal facial exam Eyes: General: appearance normal, both eyes and all related structures EOM: EOMs intact bilaterally Neck: Neck: Yes normal visual inspection and Yes no meningeal signs Resp: Effort & Inspection: normal respiratory effort and no respiratory distress Cardio: Rate: regular rate Skin: Rashes: no rashes Wounds: no wounds Neuro: General: patient oriented x3, tone normal and no meningeal signs Cranial nerves: Yes CN's II-XII intact bilaterally Gait exam (Neuro): Normal gait present Extrem: General: Yes normal to inspection Medical Decision Making Medical Decision Making MDM Narrative: 32-year-old female past medical history of abnormal uterine bleeding, syphilis positive, presenting to ED for syphilis treatment. On exam vital signs stable, NAD, nontoxic appearing, asymptomatic at present. Will treat with penicillin G. Recommended close PCP/infectious disease or tapestry follow-up for further treatment/monitoring. Discussed importance of informing partners and refraining from sexual contact Please refer to course for remaining clinical decision making, interpretation of labs/imaging results, and discussions with consultants and/or family members. Results discussed with patient including worrisome signs and symptoms and strict return precautions, and when to return to the emergency department. They verbalized understanding and feel safe for discharge at this time. Differential Diagnosis Differential Diagnoses: The differential diagnosis associated with the presentation includes As above Admission/Observation Consideration of admission/observation: Escalation of care including admission/observation considered Lab Data [facility] Lab Attestation statement: I reviewed the patient's lab results. External Record Review External record reviewed: Outpatient record Tests considered The following testing was considered but not selected: As above Prescription Management I considered prescription management with: Pain Medication Social Determinants Patient?s care significantly limited by Social Determinants of Health including: Low income, Alcoholism and drug addiction in family and Problems related to primary support group Discharge Plan Discharge Clinical Impression: Syphilis Patient Disposition: Home, Self-Care Instructions: Syphilis (ED) Additional Instructions: You have syphilis, you were treated with her 1st injection today in the emergency department Please have close follow-up with her doctor as well as Infectious Disease Please inform her partners they can be tested and treated as well Refrain from any sexual contact for the next 3 weeks Prescriptions: No Action ketorolac 10 mg tablet 10 mg PO TID PRN (Reason: pain) 5 Days Qty: 15 0RF doxycycline hyclate 100 mg tablet 100 mg PO BID 14 Days Qty: 28 0RF metronidazole 500 mg tablet 500 mg PO Q12H 14 Days Qty: 28 0RF lidocaine HCl [Lidocaine Viscous] 2 % solution 1 appl mucous membrane TID PRN (Reason: pain) Qty: 100 0RF medroxyprogesterone [Provera] 10 mg tablet 10 mg PO DAILY Qty: 30 0RF ferrous sulfate 325 mg (65 mg iron) tablet 325 mg PO DAILY Qty: 30 0RF [place] [facility] [place] [facility]] [facility] [Provider Group] Vikash Montes III, MD [Primary Care Provider] -
[2023-06-03] MEDS: Penicillin G Benzathine 2,400,000 UNIT/4 ML SYRINGE 2400000 UNIT IM (13:23)
== END 2023-06-03 13:29 | disposition home or self-care (01) ==
PROVIDERS: Emergency Provider Emergency Medicine Emergency Medical Services; PCP Internal Medicine
DX: A53.9 Syphilis, unspecified (principal)
CPT/HCPCS: 96372; 99282; 99284; J0561

== ENCOUNTER 2024-04-21 11:32 | Outpatient (AMB) | payer OTHER, SELFPAY ==
[2024-04-21 11:14] VITALS: BP 140/70; PULSE 110; RESP 22; O2SAT 98
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
== END 2024-04-21 12:54 | disposition home or self-care (01) ==
PROVIDERS: PCP Internal Medicine
DX: Z00.00 Encounter for general adult medical examination without abnormal findings (principal); Z51.81 Encounter for therapeutic drug level monitoring

== ENCOUNTER → 2024-04-21 11:32 | Outpatient (BNVA) | payer OTHER, SELFPAY | PROVIDERS: PCP Internal Medicine | DX: F11.20 Opioid dependence, uncomplicated (principal); F14.10 Cocaine abuse, uncomplicated | CPT/HCPCS: 80307; 81025; 99202 ==

== ENCOUNTER → 2024-04-22 09:55 | Outpatient (BNVA) | payer OTHER, SELFPAY | PROVIDERS: PCP Internal Medicine; Visit Provider Nurse Practitioner Psychiatric/Mental Health ==

== ENCOUNTER 2024-04-29 09:43 | Outpatient (REF) | payer OTHER, SELFPAY | END 2024-04-29 09:44 | disposition home or self-care (01) | LOC: HO.LAB 09:43 | PROVIDERS: PCP Internal Medicine; Visit Provider Nurse Practitioner Psychiatric/Mental Health | DX: F11.20 Opioid dependence, uncomplicated (principal) | CPT/HCPCS: 99212 ==

== ENCOUNTER 2024-04-29 09:43 | Outpatient (AMB) | payer OTHER, SELFPAY ==
--- NOTE | 2024-04-29 09:51 | MHC.AM.SUB ---
Vital Signs 04/29/24 09:53 BP 100/60 Blood Pressure Location Rt brachial Position Sitting Respiration 22 H Pulse 65 Pulse Source Pulse Oximeter Pulse Oximetry (%) 98 Oxygen Delivery Method Room Air Intake Visit Reasons: Follow Up Allergies No Known Allergies Allergy (Verified 05/25/23 09:11) HPI HPI Follow Up: Details: Patient presents for follow up Started suboxone last week Taking 8mg BID Finds that is helping with cravings Reporting anxiety is not helped with clonidine/fells like it makes it worse --advised she can stop taking it Denies any nausea, is reporting constipation In terms of cocaine--has decreased smoking Review of Systems Const Reports as per HPI and Reports no additional complaints Physical Exam Vital Signs: Last Vital Signs Pulse 65 04/29/24 09:53 Resp 22 H 04/29/24 09:53 BP 100/60 04/29/24 09:53 Pulse Ox 98 04/29/24 09:53 Oxygen Delivery Method Room Air 04/29/24 09:53 Const General: cooperative, healthy appearing, alert and well groomed Nutritional Appearance: thin Orientation/consciousness: patient oriented x3 Limitations: no limitations Neuro General: patient oriented x3 Psych Appearance: well kempt Speech and movement: Normal speech and movement present Affect: normal affect Attitude: cooperative Thought process: Normal thought process present Thought content: Normal thought content present Insight: Good insight present (Psych) Judgement: Good judgement present (Psych) [facility] Social History Alcohol intake: never Assessment & Plan Assessment & Plan (1) Opioid use disorder, severe, dependence: Code(s): F11.20 - Opioid dependence, uncomplicated Category: Medical Plan: continue suboxone 8mg BID labs ordered will trial mirtazipine for sleep docusate PRN constipation follow up one week (2) Cocaine use disorder: Code(s): F14.10 - Cocaine abuse, uncomplicated Category: Medical Plan: risk reduction discussion Orders: Orders Complete Blood Count Auto Diff Today - Opioid dependence, uncomplicated Comprehensive Met. Panel Today - Opioid dependence, uncomplicated HIV Ab/Ag Today - Opioid dependence, uncomplicated Hepatitis C Antibody Reflex Today - Opioid dependence, uncomplicated Hepatitis B Profile Today - Opioid dependence, uncomplicated Hepatitis A IgG Today F11.20 - Opioid dependence, uncomplicated Hepatitis A IgM Today F11.20 - Opioid dependence, uncomplicated Medications: New mirtazapine 7.5 mg PO BEDTIME 7 tabs 0RF docusate sodium 100 mg PO DAILY PRN 30 caps 0RF constipation Refilled buprenorphine-naloxone 8-2 mg (Suboxone) 1 film buccal BID 14 ea 0RF Discontinued clonidine HCl Discontinued Reason: Patient no longer taking 0.1 mg PO TID PRN 21 tabs 0RF withdrawal symptoms
[2024-04-29 09:53] VITALS: BP 100/60; PULSE 65; RESP 22; O2SAT 98
== END 2024-04-29 10:16 | disposition home or self-care (01) ==
PROVIDERS: PCP Internal Medicine; Visit Provider Nurse Practitioner Psychiatric/Mental Health
DX: F11.20 Opioid dependence, uncomplicated (principal); F14.10 Cocaine abuse, uncomplicated
CPT/HCPCS: 99214

== ENCOUNTER → 2024-05-18 14:05 | Outpatient (BNVA) | payer OTHER, SELFPAY | PROVIDERS: PCP Internal Medicine; Visit Provider Nurse Practitioner Psychiatric/Mental Health | DX: F11.20 Opioid dependence, uncomplicated (principal) | CPT/HCPCS: 99212 ==

== ENCOUNTER 2024-05-18 14:25 | Inpatient (IN) | payer OTHER, SELFPAY ==
[2024-05-18 14:36] VITALS: BP 131/74; PULSE 83; RESP 16; TEMP 36.1; O2SAT 99; BMI 25.7
--- NOTE | 2024-05-18 14:45 | ECG_ITS ---
Test Reason : medical clearance Blood Pressure : */* mmHG Vent. Rate : 59 BPM Atrial Rate : 59 BPM P-R Int : 138 ms QRS Dur : 94 ms QT Int : 412 ms P-R-T Axes : 57 32 26 degrees QTcB Int : 407 ms Sinus bradycardia Minimal voltage criteria for LVH, may be normal variant ( Sokolow-Morgan ) Abnormal ECG No previous ECGs available Referred By: Generic ED Physician Electronically Signed By: Darren Tapia
[2024-05-18 15:19] LABS: MANUAL DIFF FLAG NO
[2024-05-18 15:23] LABS: Basophils Absolute Auto 0.1 X10*3/uL (0.0-0.2); Eosinophils Absolute Auto 0.1 X10*3/uL (0.0-0.4); Eosinophils Percent Auto 1.6 % (0-4); Hematocrit 36.9 % (37.0-47.0); Hemoglobin 12.2 g/dl (12.0-16.0); Imm Gran Abs Auto 0.03 X10*3/uL (0.00-0.03); Imm Gran Pct Auto 0.6 % (0.0-0.4); Lymphocytes Absolute Auto 1.4 X10*3/uL (1.2-4.9); Mean Corpuscular HGB Conc 33.1 g/dl (31.0-35.0); Mean Corpuscular Hemoglobin 29.1 pg (27.0-33.0); Mean Corpuscular Volume 88.1 fL (80.0-98.0); Mean Platelet Volume 10.3 fL (9.4-12.3); Monocytes Absolute Auto 0.3 X10*3/uL (0.1-1.2); Neutrophils Absolute Auto 3.2 x10*3/uL (2.0-8.3); Neutrophils Percent Auto 63.8 % (45-73); Platelet Count 223 X10*3/uL (160-400); Red Blood Count 4.19 X10*6/uL (4.20-5.50); Red Cell Distribution Width 12.7 % (11.0-16.0)
[2024-05-18 15:23] LABS: UPreg QC Valid YES; Urine Pregnancy NEGATIVE (NEGATIVE)
--- NOTE | 2024-05-18 15:23 | ED_ITS ---
HPI - Psych General Chief Complaint: Psychiatric Symptoms Stated Complaint: SI statements Time Seen by Provider: 05/18/24 15:21 Source: patient and old records reviewed Limitations: no limitations History of Present Illness ED Provider: CARMELO BARON Narrative: 33 yo female with PMH of opiate and cocaine abuse follows with Noemy Noland on suboxone here with c/o lots of crying past two days, thinking about her dad who . Vague SI no plan. No medical concerns. Wants to do better for her son feels she is letting him down all the time MD complaint: feels depressed Onset (ago): day(s) (2) Duration: constant History of same: Yes Relieving factors: none Exacerbating factors: other Context: significant life stressor Associated psychiatric symptoms: depression Associated symptoms: denies other symptoms Treatments prior to arrival: none If self harm: admits thoughts of self harm Related Data Home Medications ?Medication ?Instructions ?Recorded ?Confirmed clonidine HCl 0.1 mg tablet 0.1 mg PO TID PRN withdrawal 05/18/24 05/18/24 symptom Previous Rx's ?Medication ?Instructions ?Recorded docusate sodium 100 mg capsule 100 mg PO DAILY PRN constipation 04/29/24 #30 caps mirtazapine 7.5 mg tablet 7.5 mg PO BEDTIME #7 tabs 04/29/24 buprenorphine 8 mg-naloxone 2 mg 1 film buccal BID #14 ea 05/11/24 sublingual film (Suboxone) Allergies Allergy/AdvReac Type Severity Reaction Status Date / Time No Known Allergies Allergy Verified 05/18/24 14:37 Review of Systems 2 Review of Systems: Constitutional : No Fever, No Chills ENT/Mouth : No Ear Pain, No Nasal Congestion, No sore throat Eyes: No Eye Pain, No Swelling, No Redness Cardiovascular : No Chest Pain, No SOB Respiratory : No Cough, No Sputum, No Dyspnea Gastrointestinal : No Nausea, No Vomiting, No Diarrhea, No Hematochezia, No Melena Genitourinary : No Dysuria, No Urinary Frequency, No Hematuria Musculoskeletal : No Myalgias Skin : No Skin Lesions, No rash Neuro : No Weakness, No Numbness, No Paresthesias, No Dizziness, No Headache Psych : positive Anxiety, positive Depression, positive SI no HI All other systems reviewed and are negative PMFSH Past Medical History Attestation statement: The following information was validated with the patient. Source: old records reviewed Medical History (Updated 05/18/24 @ 16:47 by Jaqueline Guerra DO) Opioid use disorder, severe, dependence Cocaine use disorder Social History Social History (Updated 05/18/24 @ 15:24 by Jaqueline Guerra DO) Alcohol intake: never Patient Tobacco Use Status: Tobacco use Unknown Advance Directives: No Advance Directives Information Provided: Yes Do you have a plan to hurt others: No Plan Physical Exam 2 Vital Signs: Vital Signs: Last Vital Signs Temp 97 F 05/18/24 14:36 Pulse 83 05/18/24 14:36 Resp 16 05/18/24 16:00 BP 131/74 05/18/24 14:36 Pulse Ox 99 05/18/24 14:36 O2 Del Method Room Air 05/18/24 14:36 BMI result Body Mass Index 25.7 Appearance: Alert. Oriented X3. No acute distress. Eyes: Pupils equal, round and reactive to light. ENT: Pharynx normal. Neck: Normal inspection. Neck supple. CVS: Normal heart rate and rhythm. Pulses normal. Respiratory: No respiratory distress. Breath sounds normal. Abdomen: Soft and nontender. Skin: Skin warm and dry. Normal skin color. Normal skin turgor. Extremities: No lower extremity edema. No calf ttp Neuro: Oriented X 3. No motor deficit. No sensory deficit. CN2-12 intact Medications Administered Discontinued Medications Generic Name Dose Route Start Last Admin Trade Name Freq PRN Reason Stop Dose Admin Lorazepam 2 mg 05/18/24 16:43 05/18/24 16:58 Lorazepam 1 Mg Tablet PO 05/18/24 16:44 2 mg ONCE ONE Administration Medical Decision Making Medical Decision Making [facility] Narrative: 33 yo female with PMH of opiate and cocaine abuse follows with Noemy Noland on suboxone here with c/o depression and vague SI. She has no medical complaints at this time will obtain labs and CARE team consult. PO medications from home ordered. Differential Diagnosis Differential Diagnoses: The differential diagnosis associated with the presentation includes depression, psychosis, substance abuse Admission/Observation Consideration of admission/observation: Escalation of care including admission/observation considered physician observation started at 345pm pending CARE team Consult Healthcare Provider Management of the patient was discussed with: Behavioral Health Provider Lab Data [facility] Lab Attestation statement: I reviewed the patient's lab results. 05/18/24 15:12 05/18/24 15:12 Labs: Lab Results 05/18/24 05/18/24 Range/Units 15:12 15:13 WBC 5.0 (4.8-10.8) X10*3/uL RBC 4.19 L (4.20-5.50) X10*6/uL Hgb 12.2 (12.0-16.0) g/dl Hct 36.9 L (37.0-47.0) % MCV 88.1 (80.0-98.0) fL MCH 29.1 (27.0-33.0) pg MCHC 33.1 (31.0-35.0) g/dl RDW 12.7 (11.0-16.0) % Plt Count 223 (160-400) X10*3/uL MPV 10.3 (9.4-12.3) fL Immature Gran % (Auto) 0.6 H (0.0-0.4) % Neut % (Auto) 63.8 (45-73) % Lymph % (Auto) 27.0 (20-40) % [place] % (Auto) 6.0 (2-11) % Eos % (Auto) 1.6 (0-4) % Baso % (Auto) 1.0 (0-2) % Lymph # (Auto) 1.4 (1.2-4.9) X10*3/uL [place] # (Auto) 0.3 (0.1-1.2) X10*3/uL Eos # (Auto) 0.1 (0.0-0.4) X10*3/uL Baso # (Auto) 0.1 (0.0-0.2) X10*3/uL Abs Immat Gran (auto) 0.03 (0.00-0.03) X10*3/uL Absolute Neuts (auto) 3.2 (2.0-8.3) x10*3/uL Absolute Nucleated RBC 0.000 (0.0-0.012) X10*3/uL Nucleated RBC % (auto) 0.0 (0.0-0.2) /100WBC Sodium 139 (135-145) mmol/L Potassium 3.9 (3.3-5.1) mmol/L Chloride 108 (96-108) mmol/L Carbon Dioxide 25 (22-29) mmol/L Anion Gap 10 L (12-20) BUN 12 (9-16) mg/dL Creatinine 0.63 (0.5-1.4) mg/dL Estim Creat Clear Calc 118.1 Estimated GFR > 60 Random Glucose 113 (60-115) mg/dL Calcium 9.1 (8.4-10.2) mg/dL Total Bilirubin 0.2 (0.0-1.0) mg/dL AST 26 (5-31) U/L ALT 31 (0-31) U/L Alkaline Phosphatase 47 (39-117) U/L Total Protein 7.6 (6.5-8.0) g/dL Albumin 4.1 (3.5-5.0) g/dL Urine Test NEGATIVE (NEGATIVE) Urine Opiates Screen Not Detected (Not Detect) Ur Buprenorphine Scrn Not Detected (Not Detect) ng/mL Ur Oxycodone Screen Not Detected (Not Detect) ng/mL Urine Methadone Screen Not Detected (Not Detect) ng/mL Urine Fentanyl Screen POSITIVE H (Not Detect) Ur Barbiturates Screen Not Detected (Not Detect) Ur Phencyclidine Scrn Not Detected (Not Detect) Ur Amphetamines Screen Not Detected (Not Detect) U Benzodiazepines Scrn POSITIVE H (Not Detect) Urine Cocaine Screen POSITIVE H (Not Detect) U Marijuana (THC) Screen Not Detected (Not Detect) Influenza Type A (PCR) NEGATIVE (Negative) Influenza Type B (PCR) NEGATIVE (Negative) RSV RNA Qual (PCR) NEGATIVE (Negative) SARS-CoV-2 RNA (RT-PCR) NEGATIVE (Negative) Independent Interpretation I performed an independent interpretation of an: EKG Interpretation: Rate: 59 Rhythm: sinus bradycardia [place]: normal, LVH Normal P waves. Normal [place]. Normal QRS complex. ST T wave : normal no JOSE qTC: 407 prior studies: no acute ischemia The study has been interpreted contemporaneously by me. . External Record Review External record reviewed: Outpatient record Social Determinants Patient?s care significantly limited by Social Determinants of Health including: Problems related to primary support group Discharge Plan Discharge Clinical Impression: Opioid use disorder, severe, dependence Depression Qualifiers: Depression Type: unspecified Qualified Code(s): F32.A - Depression, unspecified Patient Disposition: Still a Patient Prescriptions: No Action buprenorphine-naloxone [Suboxone] 8-2 mg film 1 film buccal BID Qty: 14 0RF clonidine HCl 0.1 mg tablet 0.1 mg PO TID PRN (Reason: withdrawal symptom) mirtazapine 7.5 mg tablet 7.5 mg PO BEDTIME Qty: 7 0RF docusate sodium 100 mg capsule 100 mg PO DAILY PRN (Reason: constipation) Qty: 30 0RF Interventions: [place]-Suicide Risk Severity Scale Last Done: 05/18/24 14:47 Print Language: Arabic
[2024-05-18 15:34] LABS: Amphetamine Screen Urine Not Detected (Not Detect); Barbiturates, Urine Not Detected (Not Detect); Benzodiazepines Screen Urine POSITIVE (Not Detect); Buprenorphine Scr Not Detected (Not Detect); Cannabinoid Screen Urine Not Detected (Not Detect); Cocaine Screen Urine POSITIVE (Not Detect); Fentanyl, urine POSITIVE (Not Detect); Methadone Screen, Urine Not Detected (Not Detect); Opiate Screen Urine Not Detected (Not Detect); Oxycodone Screen Urine Not Detected (Not Detect); Phencyclidine Screen Urine Not Detected (Not Detect)
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
[2024-05-18 15:41] LABS: Alanine Aminotransferase 31 U/L (0-31); Albumin Level 4.1 g/dL (3.5-5.0); Anion Gap 10 (12-20); Aspartate Amino Transferase 26 U/L (5-31); Bilirubin Total 0.2 mg/dL (0.0-1.0); Blood Urea Nitrogen 12 mg/dL (9-16); Calcium 9.1 mg/dL (8.4-10.2); Carbon Dioxide 25 mmol/L (22-29); Chloride 108 mmol/L (96-108); Creatinine Clr Calc Pharmacy 118.1; Estimated Glomerular Filt Rate > 60; Glucose Random 113 mg/dL (60-115); Potassium 3.9 mmol/L (3.3-5.1); Sodium 139 mmol/L (135-145); Total Protein 7.6 g/dL (6.5-8.0)
[2024-05-18 15:59] LABS: Influenza A PCR NEGATIVE (Negative); Influenza B PCR NEGATIVE (Negative); Resp Syncy Virus RNA Qual PCR NEGATIVE (Negative); SARS COV2 PCR INHOUSE NEGATIVE (Negative)
[2024-05-18 16:00] VITALS: RESP 16
[2024-05-18 16:36] LABS: Alkaline Phosphatase 47 U/L (39-117)
[2024-05-18] MEDS: LORazepam 1 MG TABLET 2 MG PO (16:58)
[2024-05-18 20:44] VITALS: BP 131/72; PULSE 85; RESP 18; TEMP 36.8; O2SAT 100
[2024-05-18] MEDS: Mirtazapine 7.5 MG TABLET PO (21:01)
[2024-05-18] MEDS: Buprenorphine/Naloxone 8/2 mg FILM 1 FILM BUCCAL (21:01)
[2024-05-18 23:46] VITALS: BMI 25.9
[2024-05-18 23:47] VITALS: BP 129/79; PULSE 63; RESP 18; TEMP 36.7; O2SAT 98
[2024-05-19] MEDS: hydrOXYzine HCL 25 MG TABLET PO (00:32)
[2024-05-19] MEDS: Nicotine Polacrilex 2 MG GUM 4 MG BUCCAL ×2 (00:32→10:05)
[2024-05-19] MEDS: Docusate Sodium 100 MG CAPSULE PO (00:32)
[2024-05-19] MEDS: traZODone HCL 50 MG TABLET PO ×2 (00:32→01:50)
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
[2024-05-19 04:55] VITALS: BP 112/64
[2024-05-19] MEDS: cloNIDine HCL 0.1 MG TABLET PO ×3 (04:55→21:03)
[2024-05-19 07:00] VITALS: BMI 26.7
[2024-05-19 08:00] VITALS: BP 102/71; PULSE 58; RESP 14; TEMP 36.6; O2SAT 98
[2024-05-19] MEDS: Buprenorphine/Naloxone 8/2 mg FILM 1 FILM BUCCAL ×3 (08:46→20:57)
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
[2024-05-19 09:49] LABS: Cholesterol 138 mg/dL (<200); HDL Cholesterol 40 mg/dL (>40); LDL Cholesterol Calculated 76 mg/dL (<100); Triglycerides 113 mg/dL (<150)
[2024-05-19 10:04] LABS: Free T4 (Free Thyroxine) 0.97 ng/dL (0.71-1.85); Thyroid Stimulating Hormone 4.92 uIU/mL (0.32-4.0)
[2024-05-19 10:15] LABS: Folate 9.4 ng/mL (> or = 4.0); Vitamin B12 326 pg/mL (200-900)
[2024-05-19 11:19] LABS: Estimated Average Glucose 111 mg/dL; Hemoglobin A1C 107.1131 umol/L; Hemoglobin A1c % 5.5 % (<6.0); Total Hemoglobin (HGBA1C) 2888.0528 umol/L
[2024-05-19] MEDS: clonazePAM 1 MG TABLET PO ×2 (14:06→20:57)
[2024-05-19] MEDS: Nicotine Polacrilex Lozenge 4 MG LOZENGE BUCCAL ×2 (14:07→20:33)
[2024-05-19 16:47] VITALS: BP 119/73
[2024-05-19] MEDS: Thiamine HCL 100 MG TABLET PO (17:57)
[2024-05-19] MEDS: Mirtazapine 15 MG TABLET PO (20:57)
[2024-05-19 21:00] VITALS: BP 118/58; PULSE 77; RESP 18; TEMP 36.6; O2SAT 98
[2024-05-19 21:03] VITALS: BP 118/58
[2024-05-20 02:06] VITALS: BP 104/53
[2024-05-20] MEDS: Mirtazapine 15 MG TABLET PO (02:06)
[2024-05-20] MEDS: cloNIDine HCL 0.1 MG TABLET PO ×4 (02:06→23:39)
[2024-05-20] MEDS: hydrOXYzine HCL 50 MG TABLET PO ×3 (06:56→23:40)
[2024-05-20 07:53] VITALS: BP 95/49; PULSE 71; RESP 16; TEMP 36.8; O2SAT 98
[2024-05-20] MEDS: Buprenorphine/Naloxone 8/2 mg FILM 1 FILM BUCCAL ×3 (08:49→20:58)
[2024-05-20] MEDS: Thiamine HCL 100 MG TABLET PO (08:49)
[2024-05-20] MEDS: clonazePAM 1 MG TABLET PO (08:49)
[2024-05-20] MEDS: Nicotine Polacrilex Lozenge 4 MG LOZENGE BUCCAL (12:37)
--- NOTE | 2024-05-20 14:51 | HO.PSYCHPN ---
Subjective Subjective Date of Service: 05/20/24 Reason For Visit: SI/depression/DDx Interim History: slept well but had some MNA. agrees to increase remeron to 22.5 mg at HS. remains quite voluble and digressive. not scoring on CIWA. very attached to klonopin already, arguing it not be decreased. per staff, slept 5 hours. Mental Status Exam Mental Status Exam Narrative: disheveled. adequately dressed. cooperative. PMA of very frequent movements of the extremities and truncal repositioning. speech incr rate and amount, decr latency. thoughts digressive. affect full range, hyper-intense, mod-labile (teary). mood not assessed. no SI/HI/AVH expressed. Diagnostics Vital Signs (24Hr): Vital Signs - 24 hr 05/19/24 16:47 05/19/24 21:00 05/19/24 21:03 Temperature 97.8 F Pulse Rate 77 Respiratory Rate 18 Blood Pressure 119/73 118/58 L 118/58 L Pulse Oximetry 98 Oxygen Delivery Method Room Air 05/20/24 02:06 05/20/24 07:53 Temperature 98.2 F Pulse Rate 71 Respiratory Rate 16 Blood Pressure 104/53 L 95/49 L Pulse Oximetry 98 Oxygen Delivery Method Room Air BMI result Body Mass Index 26.7 Labs 05/18/24 15:12 05/18/24 15:12 Labs: Laboratory Results - last 48 hr 05/18/24 05/18/24 05/19/24 15:12 15:13 08:16 WBC 5.0 RBC 4.19 L Hgb 12.2 Hct 36.9 L MCV 88.1 MCH 29.1 MCHC 33.1 RDW 12.7 Plt Count 223 MPV 10.3 Immature Gran % (Auto) 0.6 H Neut % (Auto) 63.8 Lymph % (Auto) 27.0 Traverse % (Auto) 6.0 Eos % (Auto) 1.6 Baso % (Auto) 1.0 Lymph # (Auto) 1.4 Traverse # (Auto) 0.3 Eos # (Auto) 0.1 Baso # (Auto) 0.1 Abs Immat Gran (auto) 0.03 Absolute Neuts (auto) 3.2 Absolute Nucleated RBC 0.000 Nucleated RBC % (auto) 0.0 Sodium 139 Potassium 3.9 Chloride 108 Carbon Dioxide 25 Anion Gap 10 L BUN 12 Creatinine 0.63 Estim Creat Clear Calc 118.1 Estimated GFR > 60 Random Glucose 113 Estimat Average Glucose 111 Hemoglobin A1c % 5.5 Calcium 9.1 Total Bilirubin 0.2 AST 26 ALT 31 Alkaline Phosphatase 47 Total Protein 7.6 Albumin 4.1 Triglycerides 113 Cholesterol 138 LDL Cholesterol, Calc 76 HDL Cholesterol 40 L Vitamin B12 326 Folate 9.4 TSH 4.92 H Free T4 0.97 Urine Test NEGATIVE Urine Opiates Screen Not Detected Ur Buprenorphine Scrn Not Detected Ur Oxycodone Screen Not Detected Urine Methadone Screen Not Detected Urine Fentanyl Screen POSITIVE H Ur Barbiturates Screen Not Detected Ur Phencyclidine Scrn Not Detected Ur Amphetamines Screen Not Detected U Benzodiazepines Scrn POSITIVE H Urine Cocaine Screen POSITIVE H U Marijuana (THC) Screen Not Detected Influenza Type A (PCR) NEGATIVE Influenza Type B (PCR) NEGATIVE RSV RNA Qual (PCR) NEGATIVE SARS-CoV-2 RNA (RT-PCR) NEGATIVE Medications Medications Current Medications Acetaminophen (Acetaminophen 325 Mg Tablet) 650 mg PO Q6H PRN PRN Reason: Headache/Pain Mild Scale (1-3) Al Hydroxide/Mg Hydroxide (Magnesium Hydrox/Alum Hydrox 30 Ml Oral.Susp) 30 ml PO Q6H PRN PRN Reason: Heartburn/Nausea Buprenorphine/Naloxone (Buprenorphine/Naloxone 8/2 Mg Film) 1 film BUCCAL TID ERYN Last Admin: 05/20/24 14:30 Dose: 1 film Clonazepam (Clonazepam 0.5 Mg Tablet) 0.5 mg PO BID ERYN Clonidine HCl (Clonidine Hcl 0.1 Mg Tablet) 0.1 mg PO TID PRN; Protocol PRN Reason: severe anxiety Last Admin: 05/20/24 02:06 Dose: 0.1 mg Clonidine HCl (Clonidine Hcl 0.1 Mg Tablet) 0.1 mg PO BEDTIME ERYN; Protocol Last Admin: 05/19/24 21:03 Dose: 0.1 mg Docusate Sodium (Docusate Sodium 100 Mg Capsule) 100 mg PO DAILY PRN PRN Reason: constipation Last Admin: 05/19/24 00:32 Dose: 100 mg Hydroxyzine HCl (Hydroxyzine Hcl 50 Mg Tablet) 50 mg PO Q6H PRN PRN Reason: Anxiety Last Admin: 05/20/24 06:56 Dose: 50 mg Magnesium Hydroxide (Milk Of Magnesia 30 Ml Oral.Susp) 30 ml PO DAILY PRN PRN Reason: Constipation Mirtazapine (Mirtazapine 15 Mg Tablet) 15 mg PO BEDTIME PRN PRN Reason: insomnia Last Admin: 05/20/24 02:06 Dose: 15 mg Mirtazapine (Mirtazapine 7.5 Mg Tablet) 22.5 mg PO BEDTIME ERYN Nicotine Polacrilex (Nicotine Polacrilex Lozenge 4 Mg Lozenge) 4 mg BUCCAL Q1H PRN PRN Reason: Nicotine Cravings Last Admin: 05/20/24 12:37 Dose: 4 mg Thiamine HCl (Thiamine Hcl 100 Mg Tablet) 100 mg PO DAILY ERYN Last Admin: 05/20/24 08:49 Dose: 100 mg Allergies Allergies Allergy/AdvReac Type Severity Reaction Status Date / Time No Known Allergies Allergy Verified 05/18/24 14:37 Assessment & Plan Assessment & Plan (1) Opioid use disorder, severe, dependence: Status: Acute Code(s): F11.20 - Opioid dependence, uncomplicated (2) Cocaine use disorder, severe, dependence: Status: Acute Code(s): F14.20 - Cocaine dependence, uncomplicated (3) PTSD (post-traumatic stress disorder): Status: Acute Code(s): F43.10 - Post-traumatic stress disorder, unspecified Plan 05/19: start clonidine 0.1 mg QHS for nightmares and insomnia in PTSD. increase remeron from 7.5 QHS to 15 QHS MR x 1. increase suboxone from BID to TID (her prior outpt regimen). DC trazodone. unclear how much klonopin pt has been taking, started klonopin 1 BID for now. add ativan per CIWA as well. otherwise continue previous regimen. supportive care for cocaine withdrawal. 05/20: overly focused on obtaining klonopin. informed it would be cut today and tapered completely prior to discharge. c/o insomnia, HS remeron increased to 22.5 mg. klonopin cut from 1 BID to 0.5 BID, as pt not scoring on CIWA and appears over-medicated this morning. DC CIWA. otherwise continue current mgmt. Reason for continued inpatient stay Substantial Risk for: inability to function Time Spent With Patient Time: Total time managing care of this patient today __25__ minutes.
[2024-05-20 17:52] VITALS: BP 115/64
[2024-05-20 20:00] VITALS: BP 109/60; PULSE 82; RESP 18; TEMP 37.1; O2SAT 97
[2024-05-20] MEDS: Mirtazapine 7.5 MG TABLET 22.5 MG PO (20:56)
[2024-05-20] MEDS: clonazePAM 0.5 MG TABLET PO (20:58)
[2024-05-20 23:39] VITALS: BP 109/60
[2024-05-21 07:25] VITALS: BP 101/49; PULSE 56; RESP 16; TEMP 36.4; O2SAT 97
--- NOTE | 2024-05-21 08:37 | HO.PSYCHPN ---
Subjective Subjective Date of Service: 05/21/24 Reason For Visit: SI/depression/DDx Subjective Notes: Conditional Voluntary Healthcare Proxy: No Guardianship: No Medical Problems Affecting Mental Status: Yes (pain) Interim History: 33 yo WF reports crying 3 days straight before admission- feeling clonazepam bid has helped- not waking up with high anxiety- Sleepg continues problematic and requests trial of trazodone 100mg qhs- Medication Compliance: Yes Side effects from medications: No Attending Groups: Intermittent Review of Systems Acute medical concerns: No Medical Review of Systems: unchanged Mental Status Exam Mental Status Exam Patient Appearance: Disheveled and Unkempt Patient Orientation: Person, Place and Time Level of Consciousness: Drowsy (but can be woken up easily) Patient Behavior: Appropriate, Talkative, Distractible, Good Eye Contact and Crying Mood Description: Withdrawn and Anxious Affect Description: Labile (mildly) Patient Cognition Impaired: No Ability to Follow Directions: Good Speech Pattern: Clear Thought Process: Intact and Distracted Thought Content: positive for Intact Depressive Symptoms: Increased Anxiety, Muscle Tension, Difficulty Sleeping, Feelings of Worthlessness, Unhappiness, Loss of Energy and Difficulty Concentrating Judgement: Fair Diagnostics Vital Signs (24Hr): Vital Signs - 24 hr 05/20/24 17:52 05/20/24 20:00 05/20/24 23:39 Temperature 98.7 F Pulse Rate 82 Respiratory Rate 18 Blood Pressure 115/64 109/60 109/60 Pulse Oximetry 97 Oxygen Delivery Method Room Air BMI result Body Mass Index 26.7 Labs 05/18/24 15:12 05/18/24 15:12 Labs: Laboratory Results - last 48 hr 05/19/24 08:16 Estimat Average Glucose 111 Hemoglobin A1c % 5.5 Triglycerides 113 Cholesterol 138 LDL Cholesterol, Calc 76 HDL Cholesterol 40 L Vitamin B12 326 Folate 9.4 TSH 4.92 H Free T4 0.97 Medications Medications Current Medications Acetaminophen (Acetaminophen 325 Mg Tablet) 650 mg PO Q6H PRN PRN Reason: Headache/Pain Mild Scale (1-3) Al Hydroxide/Mg Hydroxide (Magnesium Hydrox/Alum Hydrox 30 Ml Oral.Susp) 30 ml PO Q6H PRN PRN Reason: Heartburn/Nausea Buprenorphine/Naloxone (Buprenorphine/Naloxone 8/2 Mg Film) 1 film BUCCAL TID EYRN Last Admin: 05/20/24 20:58 Dose: 1 film Clonazepam (Clonazepam 0.5 Mg Tablet) 0.5 mg PO BID ERYN Last Admin: 05/20/24 20:58 Dose: 0.5 mg Clonidine HCl (Clonidine Hcl 0.1 Mg Tablet) 0.1 mg PO TID PRN; Protocol PRN Reason: severe anxiety Last Admin: 05/20/24 23:39 Dose: 0.1 mg Clonidine HCl (Clonidine Hcl 0.1 Mg Tablet) 0.1 mg PO BEDTIME ERYN; Protocol Last Admin: 05/20/24 20:58 Dose: 0.1 mg Docusate Sodium (Docusate Sodium 100 Mg Capsule) 100 mg PO DAILY PRN PRN Reason: constipation Last Admin: 05/19/24 00:32 Dose: 100 mg Hydroxyzine HCl (Hydroxyzine Hcl 50 Mg Tablet) 50 mg PO Q6H PRN PRN Reason: Anxiety Last Admin: 05/20/24 23:40 Dose: 50 mg Magnesium Hydroxide (Milk Of Magnesia 30 Ml Oral.Susp) 30 ml PO DAILY PRN PRN Reason: Constipation Mirtazapine (Mirtazapine 15 Mg Tablet) 15 mg PO BEDTIME PRN PRN Reason: insomnia Last Admin: 05/20/24 02:06 Dose: 15 mg Mirtazapine (Mirtazapine 7.5 Mg Tablet) 22.5 mg PO BEDTIME ERYN Last Admin: 05/20/24 20:56 Dose: 22.5 mg Nicotine Polacrilex (Nicotine Polacrilex Lozenge 4 Mg Lozenge) 4 mg BUCCAL Q1H PRN PRN Reason: Nicotine Cravings Last Admin: 05/20/24 12:37 Dose: 4 mg Thiamine HCl (Thiamine Hcl 100 Mg Tablet) 100 mg PO DAILY ERYN Last Admin: 05/20/24 08:49 Dose: 100 mg Allergies Allergies Allergy/AdvReac Type Severity Reaction Status Date / Time No Known Allergies Allergy Verified 05/18/24 14:37 Assessment & Plan Assessment & Plan (1) Opioid use disorder, severe, dependence: Status: Acute Code(s): F11.20 - Opioid dependence, uncomplicated (2) Cocaine use disorder, severe, dependence: Status: Acute Code(s): F14.20 - Cocaine dependence, uncomplicated (3) PTSD (post-traumatic stress disorder): Status: Acute Code(s): F43.10 - Post-traumatic stress disorder, unspecified Plan 05/19: start clonidine 0.1 mg QHS for nightmares and insomnia in PTSD. increase remeron from 7.5 QHS to 15 QHS MR x 1. increase suboxone from BID to TID (her prior outpt regimen). DC trazodone. unclear how much klonopin pt has been taking, started klonopin 1 BID for now. add ativan per CIWA as well. otherwise continue previous regimen. supportive care for cocaine withdrawal. 05/20: overly focused on obtaining klonopin. informed it would be cut today and tapered completely prior to discharge. c/o insomnia, HS remeron increased to 22.5 mg. klonopin cut from 1 BID to 0.5 BID, as pt not scoring on CIWA and appears over-medicated this morning. DC CIWA. otherwise continue current mgmt. 05/21 - requesting trazodone 100mg - for sleep finding clonazepam helpful for anxiety Patient educated on: medication risk/benefits Informed Consent: understands Reason for continued inpatient stay Substantial Risk for: rapid decompensation Time Spent With Patient Time: Total time managing care of this patient today ____ minutes.
[2024-05-21] MEDS: Buprenorphine/Naloxone 8/2 mg FILM 1 FILM BUCCAL ×3 (09:11→20:10)
[2024-05-21] MEDS: clonazePAM 0.5 MG TABLET PO ×2 (09:11→20:10)
[2024-05-21] MEDS: Thiamine HCL 100 MG TABLET PO (09:11)
[2024-05-21] MEDS: Milk of Magnesia 30 ML ORAL.SUSP PO (10:03)
[2024-05-21] MEDS: Nicotine Polacrilex Lozenge 4 MG LOZENGE BUCCAL (18:11)
[2024-05-21] MEDS: hydrOXYzine HCL 50 MG TABLET PO (18:11)
[2024-05-21 20:00] VITALS: BP 127/63; PULSE 92; RESP 16; TEMP 36.8; O2SAT 97
[2024-05-21] MEDS: Mirtazapine 7.5 MG TABLET 22.5 MG PO (20:08)
[2024-05-21] MEDS: cloNIDine HCL 0.1 MG TABLET PO ×2 (20:09→22:29)
[2024-05-21] MEDS: traZODone HCL 100 MG TABLET PO (20:14)
[2024-05-21 22:29] VITALS: BP 110/60
[2024-05-22] MEDS: hydrOXYzine HCL 50 MG TABLET PO ×2 (00:40→18:49)
[2024-05-22 07:46] VITALS: BP 102/61; PULSE 65; RESP 16; TEMP 36.3; O2SAT 97
[2024-05-22] MEDS: clonazePAM 0.5 MG TABLET PO ×2 (08:56→21:02)
[2024-05-22] MEDS: Thiamine HCL 100 MG TABLET PO (08:56)
[2024-05-22] MEDS: Buprenorphine/Naloxone 8/2 mg FILM 1 FILM BUCCAL ×3 (08:56→20:41)
--- NOTE | 2024-05-22 09:41 | HO.PSYCHPN ---
Subjective Subjective Date of Service: 05/22/24 Reason For Visit: SI/depression/DDx Subjective Notes: Conditional Voluntary Healthcare Proxy: No Guardianship: No Medical Problems Affecting Mental Status: No Interim History: 33 yo only slept 4 hrs on her trazodone 100mg trial last pm- seems racey and hyperverbal- , sensitive and reactive- at times - and when asking about clonazepam kpin to differentiate from clonidine- feels that really helped her and was able to take a break and process something she normally would have reacted to without thinking- so wondered about another dose didn't realize it was potentially dependent medication- also discussed trying seroquel at bed time for racing thoughts/sleep Did agree to different timing of clonazepam can have in am and after dinner , rather than bed time- (though we missed this today- as provider did not point out change to nursing) Medication Compliance: Yes Side effects from medications: No Attending Groups: Yes Review of Systems Acute medical concerns: No Medical Review of Systems: unchanged Mental Status Exam Mental Status Exam Patient Appearance: Unkempt Patient Orientation: Person, Place, Time and Situation Level of Consciousness: Awake Patient Behavior: Appropriate, Talkative, Anxious and Distractible Mood Description: Apprehensive (easily feels misunderstood or that she has done something wrong) Affect Description: Blunted Patient Cognition Impaired: No Ability to Follow Directions: Good Speech Pattern: Clear Hallucinations: None Delusions: Not Present Thought Process: Intact and Racing Thought Content: positive for Logical Depressive Symptoms: Difficulty Concentrating Judgement: Fair Diagnostics Vital Signs (24Hr): Vital Signs - 24 hr 05/21/24 20:00 05/21/24 22:29 05/22/24 07:46 Temperature 98.2 F 97.3 F Pulse Rate 92 65 Respiratory Rate 16 16 Blood Pressure 127/63 110/60 102/61 Pulse Oximetry 97 97 Oxygen Delivery Method Room Air Room Air BMI result Body Mass Index 26.7 Labs 05/18/24 15:12 05/18/24 15:12 Medications Medications Current Medications Acetaminophen (Acetaminophen 325 Mg Tablet) 650 mg PO Q6H PRN PRN Reason: Headache/Pain Mild Scale (1-3) Al Hydroxide/Mg Hydroxide (Magnesium Hydrox/Alum Hydrox 30 Ml Oral.Susp) 30 ml PO Q6H PRN PRN Reason: Heartburn/Nausea Buprenorphine/Naloxone (Buprenorphine/Naloxone 8/2 Mg Film) 1 film BUCCAL TID ERYN Last Admin: 05/22/24 08:56 Dose: 1 film Clonazepam (Clonazepam 0.5 Mg Tablet) 0.5 mg PO BID ERYN Last Admin: 05/22/24 08:56 Dose: 0.5 mg Clonidine HCl (Clonidine Hcl 0.1 Mg Tablet) 0.1 mg PO TID PRN; Protocol PRN Reason: severe anxiety Last Admin: 05/21/24 22:29 Dose: 0.1 mg Clonidine HCl (Clonidine Hcl 0.1 Mg Tablet) 0.1 mg PO BEDTIME ERYN; Protocol Last Admin: 05/21/24 20:09 Dose: 0.1 mg Docusate Sodium (Docusate Sodium 100 Mg Capsule) 100 mg PO DAILY PRN PRN Reason: constipation Last Admin: 05/19/24 00:32 Dose: 100 mg Hydroxyzine HCl (Hydroxyzine Hcl 50 Mg Tablet) 50 mg PO Q6H PRN PRN Reason: Anxiety Last Admin: 05/22/24 00:40 Dose: 50 mg Magnesium Hydroxide (Milk Of Magnesia 30 Ml Oral.Susp) 30 ml PO DAILY PRN PRN Reason: Constipation Last Admin: 05/21/24 10:03 Dose: 30 ml Mirtazapine (Mirtazapine 7.5 Mg Tablet) 22.5 mg PO BEDTIME ERYN Last Admin: 05/21/24 20:08 Dose: 22.5 mg Nicotine Polacrilex (Nicotine Polacrilex Lozenge 4 Mg Lozenge) 4 mg BUCCAL Q1H PRN PRN Reason: Nicotine Cravings Last Admin: 05/21/24 18:11 Dose: 4 mg Quetiapine Fumarate (Quetiapine Fumarate 50 Mg Tablet) 50 mg PO BEDTIME MRX1 ERYN Thiamine HCl (Thiamine Hcl 100 Mg Tablet) 100 mg PO DAILY ERYN Last Admin: 05/22/24 08:56 Dose: 100 mg Allergies Allergies Allergy/AdvReac Type Severity Reaction Status Date / Time No Known Allergies Allergy Verified 05/18/24 14:37 Assessment & Plan Assessment & Plan (1) Opioid use disorder, severe, dependence: Status: Acute Code(s): F11.20 - Opioid dependence, uncomplicated (2) Cocaine use disorder, severe, dependence: Status: Acute Code(s): F14.20 - Cocaine dependence, uncomplicated (3) PTSD (post-traumatic stress disorder): Status: Acute Code(s): F43.10 - Post-traumatic stress disorder, unspecified Plan 05/19: start clonidine 0.1 mg QHS for nightmares and insomnia in PTSD. increase remeron from 7.5 QHS to 15 QHS MR x 1. increase suboxone from BID to TID (her prior outpt regimen). DC trazodone. unclear how much klonopin pt has been taking, started klonopin 1 BID for now. add ativan per CIWA as well. otherwise continue previous regimen. supportive care for cocaine withdrawal. 05/20: overly focused on obtaining klonopin. informed it would be cut today and tapered completely prior to discharge. c/o insomnia, HS remeron increased to 22.5 mg. klonopin cut from 1 BID to 0.5 BID, as pt not scoring on CIWA and appears over-medicated this morning. DC CIWA. otherwise continue current mgmt. 05/21 - requesting trazodone 100mg - for sleep finding clonazepam helpful for anxiety 05/22 trazadone only slept 4hrs, change timing of clonazepam but not dose, or frequency, and trial of seroquel for possible bipolar spectrum illness Patient educated on: diagnosis, medication risk/benefits and substance abuse Informed Consent: understands and further education needed Reason for continued inpatient stay Substantial Risk for: inability to function and rapid decompensation Time Spent With Patient Time: Total time managing care of this patient today ____ minutes.
[2024-05-22] MEDS: Milk of Magnesia 30 ML ORAL.SUSP PO (13:50)
[2024-05-22 19:35] VITALS: BP 117/56; PULSE 78; RESP 18; TEMP 36.8; O2SAT 96
[2024-05-22 20:40] VITALS: BP 117/68
[2024-05-22] MEDS: cloNIDine HCL 0.1 MG TABLET PO (20:40)
[2024-05-22] MEDS: QUEtiapine Fumarate 50 MG TABLET PO ×2 (20:40→21:36)
[2024-05-22] MEDS: Mirtazapine 7.5 MG TABLET 22.5 MG PO (20:40)
[2024-05-23 07:47] VITALS: BP 107/52; PULSE 68; RESP 14; TEMP 36.5; O2SAT 95
[2024-05-23] MEDS: clonazePAM 0.5 MG TABLET PO (08:39)
[2024-05-23] MEDS: Thiamine HCL 100 MG TABLET PO (08:39)
[2024-05-23] MEDS: Buprenorphine/Naloxone 8/2 mg FILM 1 FILM BUCCAL ×3 (09:03→20:44)
[2024-05-23] MEDS: Nicotine Polacrilex Lozenge 4 MG LOZENGE BUCCAL (13:42)
--- NOTE | 2024-05-23 13:46 | HO.PSYCHPN ---
Subjective Subjective Date of Service: 05/23/24 Reason For Visit: SI/depression/DDx Interim History: slurring words, appearing sedated. recursive conversation regarding necessity of klonopin for her emotional well-being. informs her of continued klonopin taper. pt also c/o insomnia, agrees to increase in seroquel at HS. per staff, anxious, labile. pre-occupied with klonopin dosing. hyperverbal. Mental Status Exam Mental Status Exam Narrative: disheveled. adequately dressed. cooperative. PMA of very frequent movements of the extremities and truncal repositioning. speech incr rate and amount, decr latency. thoughts digressive. affect constricted, hyper-intense, mod-labile (teary). mood anxious. no SI/HI/AVH expressed. Diagnostics Vital Signs (24Hr): Vital Signs - 24 hr 05/22/24 19:35 05/22/24 20:40 05/23/24 07:47 Temperature 98.2 F 97.7 F Pulse Rate 78 68 Respiratory Rate 18 14 Blood Pressure 117/56 L 117/68 107/52 L Pulse Oximetry 96 95 Oxygen Delivery Method Room Air Room Air BMI result Body Mass Index 26.7 Labs 05/18/24 15:12 05/18/24 15:12 Labs: Laboratory Results - last 48 hr 05/19/24 08:16 Estimat Average Glucose 111 Hemoglobin A1c % 5.5 Triglycerides 113 Cholesterol 138 LDL Cholesterol, Calc 76 HDL Cholesterol 40 L Vitamin B12 326 Folate 9.4 TSH 4.92 H Free T4 0.97 Medications Medications Current Medications Acetaminophen (Acetaminophen 325 Mg Tablet) 650 mg PO Q6H PRN PRN Reason: Headache/Pain Mild Scale (1-3) Al Hydroxide/Mg Hydroxide (Magnesium Hydrox/Alum Hydrox 30 Ml Oral.Susp) 30 ml PO Q6H PRN PRN Reason: Heartburn/Nausea Buprenorphine/Naloxone (Buprenorphine/Naloxone 8/2 Mg Film) 1 film BUCCAL TID ERYN Last Admin: 05/23/24 09:03 Dose: 1 film Clonazepam (Clonazepam 0.5 Mg Tablet) 0.25 mg PO BID ERYN Clonidine HCl (Clonidine Hcl 0.1 Mg Tablet) 0.1 mg PO TID PRN; Protocol PRN Reason: severe anxiety Last Admin: 05/21/24 22:29 Dose: 0.1 mg Clonidine HCl (Clonidine Hcl 0.1 Mg Tablet) 0.1 mg PO BEDTIME ERYN; Protocol Last Admin: 05/22/24 20:40 Dose: 0.1 mg Docusate Sodium (Docusate Sodium 100 Mg Capsule) 100 mg PO DAILY PRN PRN Reason: constipation Last Admin: 05/19/24 00:32 Dose: 100 mg Hydroxyzine HCl (Hydroxyzine Hcl 50 Mg Tablet) 50 mg PO Q6H PRN PRN Reason: Anxiety Last Admin: 05/22/24 18:49 Dose: 50 mg Magnesium Hydroxide (Milk Of Magnesia 30 Ml Oral.Susp) 30 ml PO DAILY PRN PRN Reason: Constipation Last Admin: 05/22/24 13:50 Dose: 30 ml Mirtazapine (Mirtazapine 7.5 Mg Tablet) 22.5 mg PO BEDTIME ERYN Last Admin: 05/22/24 20:40 Dose: 22.5 mg Nicotine Polacrilex (Nicotine Polacrilex Lozenge 4 Mg Lozenge) 4 mg BUCCAL Q1H PRN PRN Reason: Nicotine Cravings Last Admin: 05/23/24 13:42 Dose: 4 mg Quetiapine Fumarate (Quetiapine Fumarate 100 Mg Tablet) 100 mg PO BEDTIME MRX1 ERYN Thiamine HCl (Thiamine Hcl 100 Mg Tablet) 100 mg PO DAILY ERYN Last Admin: 05/23/24 08:39 Dose: 100 mg Allergies Allergies Allergy/AdvReac Type Severity Reaction Status Date / Time No Known Allergies Allergy Verified 05/18/24 14:37 Assessment & Plan Assessment & Plan (1) Opioid use disorder, severe, dependence: Status: Acute Code(s): F11.20 - Opioid dependence, uncomplicated (2) Cocaine use disorder, severe, dependence: Status: Acute Code(s): F14.20 - Cocaine dependence, uncomplicated (3) PTSD (post-traumatic stress disorder): Status: Acute Code(s): F43.10 - Post-traumatic stress disorder, unspecified Plan 05/19: start clonidine 0.1 mg QHS for nightmares and insomnia in PTSD. increase remeron from 7.5 QHS to 15 QHS MR x 1. increase suboxone from BID to TID (her prior outpt regimen). DC trazodone. unclear how much klonopin pt has been taking, started klonopin 1 BID for now. add ativan per CIWA as well. otherwise continue previous regimen. supportive care for cocaine withdrawal. 05/20: overly focused on obtaining klonopin. informed it would be cut today and tapered completely prior to discharge. c/o insomnia, HS remeron increased to 22.5 mg. klonopin cut from 1 BID to 0.5 BID, as pt not scoring on CIWA and appears over-medicated this morning. DC CIWA. otherwise continue current mgmt. 05/21 - requesting trazodone 100mg - for sleep finding clonazepam helpful for anxiety 05/22 trazadone only slept 4hrs, change timing of clonazepam but not dose, or frequency, and trial of seroquel for possible bipolar spectrum illness 05/23: continue klonopin taper to 0.25 BID. increase HS seroquel to 100 mg MR x1 for insomnia. otherwise continue current mgmt. Reason for continued inpatient stay Substantial Risk for: inability to function Time Spent With Patient Time: Total time managing care of this patient today __35__ minutes.
[2024-05-23 18:18] VITALS: BP 112/64
[2024-05-23] MEDS: cloNIDine HCL 0.1 MG TABLET PO ×2 (18:18→20:43)
[2024-05-23 20:40] VITALS: BP 113/54; PULSE 83; RESP 18; TEMP 37; O2SAT 96
[2024-05-23 20:43] VITALS: BP 113/54
[2024-05-23] MEDS: QUEtiapine Fumarate 100 MG TABLET PO (20:43)
[2024-05-23] MEDS: Mirtazapine 7.5 MG TABLET 22.5 MG PO (20:43)
[2024-05-23] MEDS: clonazePAM 0.5 MG TABLET 0.25 MG PO (20:48)
[2024-05-24 07:34] VITALS: BP 100/54; PULSE 78; RESP 16; TEMP 36.8; O2SAT 98
[2024-05-24] MEDS: Nicotine Polacrilex Lozenge 4 MG LOZENGE BUCCAL (07:45)
[2024-05-24] MEDS: clonazePAM 0.5 MG TABLET 0.25 MG PO ×2 (08:37→21:49)
[2024-05-24] MEDS: Thiamine HCL 100 MG TABLET PO (08:37)
[2024-05-24] MEDS: Buprenorphine/Naloxone 8/2 mg FILM 1 FILM BUCCAL ×3 (08:38→21:50)
[2024-05-24 10:45] VITALS: BP 114/63
[2024-05-24] MEDS: cloNIDine HCL 0.1 MG TABLET PO ×2 (10:45→21:50)
--- NOTE | 2024-05-24 15:34 | P.PNPSI_ITS ---
Subjective Subjective Date of Service: 05/24/24 Reason For Visit: SI/depression/DDx Interim History: calm, cooperative, agreeable. setback today re not being able to see her son. wanted to express thanks to lamonte bo, which she was able to do this morning. states she slept very well last night. feeling more positive, hopeful, improved mood. discuss [facility], dispo plans in general. pt expresses interest in application to rehab. informed that unless they have a spot for her in the very near future, plan is for discharge, which she appeared to accept well. per staff, cv, 15s, anxiety is /. med compliant. depressed. wants to talk to lamonte bo directly. feels she will be kicked out without depression addressed. not going to groups. wants colace. Dr. Des jones killed my spirit for not giving me klonopin. Mental Status Exam Mental Status Exam Narrative: disheveled. adequately dressed. cooperative. PMA of very frequent movements of the extremities and truncal repositioning. speech incr rate and amount, decr latency. thoughts digressive. affect constricted, hyper-intense, non-labile. mood anxious. no SI/HI/AVH expressed. Diagnostics Vital Signs (24Hr): Vital Signs - 24 hr 05/23/24 18:18 05/23/24 20:40 05/23/24 20:43 Temperature 98.6 F Pulse Rate 83 Respiratory Rate 18 Blood Pressure 112/64 113/54 L 113/54 L Pulse Oximetry 96 Oxygen Delivery Method Room Air 05/24/24 07:34 05/24/24 10:45 Temperature 98.3 F Pulse Rate 78 Respiratory Rate 16 Blood Pressure 100/54 L 114/63 Pulse Oximetry 98 Oxygen Delivery Method Room Air BMI result Body Mass Index 26.7 Labs 05/18/24 15:12 05/18/24 15:12 Labs: Laboratory Results - last 48 hr 05/19/24 08:16 Estimat Average Glucose 111 Hemoglobin A1c % 5.5 Triglycerides 113 Cholesterol 138 LDL Cholesterol, Calc 76 HDL Cholesterol 40 L Vitamin B12 326 Folate 9.4 TSH 4.92 H Free T4 0.97 Medications Medications Current Medications Acetaminophen (Acetaminophen 325 Mg Tablet) 650 mg PO Q6H PRN PRN Reason: Headache/Pain Mild Scale (1-3) Al Hydroxide/Mg Hydroxide (Magnesium Hydrox/Alum Hydrox 30 Ml Oral.Susp) 30 ml PO Q6H PRN PRN Reason: Heartburn/Nausea Buprenorphine/Naloxone (Buprenorphine/Naloxone 8/2 Mg Film) 1 film BUCCAL TID ERYN Last Admin: 05/24/24 14:41 Dose: 1 film Clonazepam (Clonazepam 0.5 Mg Tablet) 0.25 mg PO BID ERYN Last Admin: 05/24/24 08:37 Dose: 0.25 mg Clonidine HCl (Clonidine Hcl 0.1 Mg Tablet) 0.1 mg PO TID PRN; Protocol PRN Reason: severe anxiety Last Admin: 05/24/24 10:45 Dose: 0.1 mg Clonidine HCl (Clonidine Hcl 0.1 Mg Tablet) 0.1 mg PO BEDTIME ERYN; Protocol Last Admin: 05/23/24 20:43 Dose: 0.1 mg Docusate Sodium (Docusate Sodium 100 Mg Capsule) 100 mg PO DAILY PRN PRN Reason: constipation Last Admin: 05/19/24 00:32 Dose: 100 mg Hydroxyzine HCl (Hydroxyzine Hcl 50 Mg Tablet) 50 mg PO Q6H PRN PRN Reason: Anxiety Last Admin: 05/22/24 18:49 Dose: 50 mg Magnesium Hydroxide (Milk Of Magnesia 30 Ml Oral.Susp) 30 ml PO DAILY PRN PRN Reason: Constipation Last Admin: 05/22/24 13:50 Dose: 30 ml Mirtazapine (Mirtazapine 7.5 Mg Tablet) 22.5 mg PO BEDTIME ERYN Last Admin: 05/23/24 20:43 Dose: 22.5 mg Nicotine Polacrilex (Nicotine Polacrilex Lozenge 4 Mg Lozenge) 4 mg BUCCAL Q1H PRN PRN Reason: Nicotine Cravings Last Admin: 05/24/24 07:45 Dose: 4 mg Quetiapine Fumarate (Quetiapine Fumarate 100 Mg Tablet) 100 mg PO BEDTIME MRX1 ERYN Last Admin: 05/23/24 22:26 Dose: Not Given Thiamine HCl (Thiamine Hcl 100 Mg Tablet) 100 mg PO DAILY [facility] Last Admin: 05/24/24 08:37 Dose: 100 mg Allergies Allergies Allergy/AdvReac Type Severity Reaction Status Date / Time No Known Allergies Allergy Verified 05/18/24 14:37 Assessment & Plan Assessment & Plan (1) Opioid use disorder, severe, dependence: Status: Acute Code(s): F11.20 - Opioid dependence, uncomplicated (2) Cocaine use disorder, severe, dependence: Status: Acute Code(s): F14.20 - Cocaine dependence, uncomplicated (3) PTSD (post-traumatic stress disorder): Status: Acute Code(s): F43.10 - Post-traumatic stress disorder, unspecified Plan 05/19: start clonidine 0.1 mg QHS for nightmares and insomnia in PTSD. increase remeron from 7.5 QHS to 15 QHS MR x 1. increase suboxone from BID to TID (her prior outpt regimen). DC trazodone. unclear how much klonopin pt has been taking, started klonopin 1 BID for now. add ativan per CIWA as well. otherwise continue previous regimen. supportive care for cocaine withdrawal. 05/20: overly focused on obtaining klonopin. informed it would be cut today and tapered completely prior to discharge. c/o insomnia, HS remeron increased to 22.5 mg. klonopin cut from 1 BID to 0.5 BID, as pt not scoring on CIWA and appears over-medicated this morning. DC CIWA. otherwise continue current mgmt. 05/21 - requesting trazodone 100mg - for sleep finding clonazepam helpful for anxiety 05/22 trazadone only slept 4hrs, change timing of clonazepam but not dose, or frequency, and trial of seroquel for possible bipolar spectrum illness 05/23: continue klonopin taper to 0.25 BID. increase HS seroquel to 100 mg MR x1 for insomnia. otherwise continue current mgmt. 05/24: continue klonopin taper tomorrow. slept well last night. continue current Tx. interested in applying to [facility]. will discharge unless [facility] can take her in the near future. Reason for continued inpatient stay Substantial Risk for: inability to function and rapid decompensation Time Spent With Patient Time: Total time managing care of this patient today __35__ minutes.
[2024-05-24] MEDS: hydrOXYzine HCL 50 MG TABLET PO (18:54)
[2024-05-24 21:01] VITALS: BP 117/59; PULSE 75; RESP 16; TEMP 36.6; O2SAT 97
[2024-05-24] MEDS: Mirtazapine 7.5 MG TABLET 22.5 MG PO (21:49)
[2024-05-24] MEDS: QUEtiapine Fumarate 100 MG TABLET PO (21:50)
[2024-05-24] MEDS: Ibuprofen 600 MG TABLET PO (21:50)
[2024-05-25] MEDS: QUEtiapine Fumarate 100 MG TABLET PO ×3 (02:05→21:27)
[2024-05-25] MEDS: Benzocaine 20 % Oral Gel 9 GM TUBE 1 APPL MUCOUS MEM ×3 (04:56→23:49)
[2024-05-25 07:31] VITALS: BP 114/50; PULSE 72; RESP 16; TEMP 36.5; O2SAT 98
[2024-05-25] MEDS: clonazePAM 0.5 MG TABLET 0.25 MG PO (08:52)
[2024-05-25] MEDS: Thiamine HCL 100 MG TABLET PO (08:53)
[2024-05-25] MEDS: Buprenorphine/Naloxone 8/2 mg FILM 1 FILM BUCCAL ×3 (08:53→20:35)
[2024-05-25] MEDS: Acetaminophen 325 MG TABLET 650 MG PO (09:00)
[2024-05-25 12:15] LABS: Amphetamine Screen Urine Not Detected (Not Detect); Barbiturates, Urine Not Detected (Not Detect); Benzodiazepines Screen Urine Not Detected (Not Detect); Buprenorphine Scr Positive (Not Detect); Cannabinoid Screen Urine Not Detected (Not Detect); Cocaine Screen Urine Not Detected (Not Detect); Fentanyl, urine Not Detected (Not Detect); Methadone Screen, Urine Not Detected (Not Detect); Opiate Screen Urine Not Detected (Not Detect); Oxycodone Screen Urine Not Detected (Not Detect); Phencyclidine Screen Urine Not Detected (Not Detect)
[2024-05-25] MEDS: hydrOXYzine HCL 50 MG TABLET PO ×2 (15:01→21:28)
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
[2024-05-25 20:00] VITALS: BP 112/60; PULSE 79; RESP 16; TEMP 36.6; O2SAT 99
[2024-05-25] MEDS: Mirtazapine 7.5 MG TABLET 22.5 MG PO (20:34)
[2024-05-25] MEDS: cloNIDine HCL 0.1 MG TABLET PO (20:34)
[2024-05-26 05:25] VITALS: BP 109/62
[2024-05-26] MEDS: Nicotine Polacrilex Lozenge 4 MG LOZENGE BUCCAL (05:25)
[2024-05-26] MEDS: cloNIDine HCL 0.1 MG TABLET PO (05:25)
[2024-05-26 07:00] VITALS: BMI 29.7
[2024-05-26 07:45] VITALS: BP 106/52; PULSE 65; RESP 16; TEMP 36.8; O2SAT 98
[2024-05-26] MEDS: Buprenorphine/Naloxone 8/2 mg FILM 1 FILM BUCCAL (08:40)
[2024-05-26] MEDS: Thiamine HCL 100 MG TABLET PO (08:40)
--- NOTE | 2024-05-26 11:12 | PC.NURSE ---
Patient easily engaged. Reports mood continues depressed, anxious, denies SI/HI plan or intent at this time. No reported perceptual disturbances, no overt psychosis or expressed delusions. Discharge paperwork reviewed reports understanding. Follow up appointments reviewed, reports understanding. Discharge medications reviewed reports understanding. Medications provided to patient upon discharge. Narcan and instruction provided, reports understanding. Resource information/booklet provided to patient. All belongings taken with patient.
== END 2024-05-26 10:34 | disposition home or self-care (01) | DRG 754 ==
LOC: HO.ED 15:39 → HO.PADLT16 21:03
PROVIDERS: Admitting Provider Psychiatry & Neurology Psychiatry; Emergency Provider Emergency Medicine; PCP Internal Medicine; Visit Provider Psychiatry & Neurology Psychiatry
DX: F32.A Depression, unspecified (principal); R45.851 Suicidal ideations; F11.20 Opioid dependence, uncomplicated; F17.210 Nicotine dependence, cigarettes, uncomplicated; Z71.6 Tobacco abuse counseling; F14.20 Cocaine dependence, uncomplicated; F43.12 Post-traumatic stress disorder, chronic; Z20.822 Contact with and (suspected) exposure to COVID-19; Z79.899 Other long term (current) drug therapy
CPT/HCPCS: 0241U; 36415; 80053; 80061; 80307; 81025; 82607; 82746; 83036; 84439; 84443; 85025; 93005; 99285; S9485

== ENCOUNTER → 2024-05-18 14:45 | Outpatient (BNV) | payer OTHER, SELFPAY | DX: R00.1 Bradycardia, unspecified (principal); R94.31 Abnormal electrocardiogram [ECG] [EKG] | CPT/HCPCS: 93010 ==

== ENCOUNTER → 2024-05-18 21:00 | Outpatient (BNV) | payer OTHER, SELFPAY | PROVIDERS: Admitting Provider Psychiatry & Neurology Psychiatry; Emergency Provider Emergency Medicine; PCP Internal Medicine; Visit Provider Psychiatry & Neurology Psychiatry | DX: F11.20 Opioid dependence, uncomplicated (principal); F14.20 Cocaine dependence, uncomplicated; F43.11 Post-traumatic stress disorder, acute | CPT/HCPCS: 90792; 99232 ==